=== PATIENT | female | born 1945 | race Caucasian/White ===

== ENCOUNTER 2017-07-02 20:09 | Inpatient (IN) | payer MEDICARE, BC ==
[~2017-07-02] VITALS: Ht 157.5 cm; Wt 90.9 kg
[2017-07-02 20:10] VITALS: BP 129/86; PULSE 100; RESP 16; TEMP 97.7; O2SAT 98
--- NOTE | 2017-07-03 00:56 | PD ---
HPI Chief Complaint: Psychiatric Symptoms Time Seen by Provider: 00:47 Travel History International Travel<30 days: No Contact w/Intl Traveler<30days: No Traveled to known affect area: No History of Present Illness HPI 71-year-old female presents to the emergency department by private transportation in the care of her son for voluntary evaluation for depression and suicidal ideation. Patient has long standing history of depression hypertension dyslipidemia chronic pain syndrome. Patient lives with her son and has been receiving her medications through her son for the past 5 years. Patient states today that more recently with past 3 days she has become more more depressed and feels that if she needed to she would overdose on pills but has not taken any kind a measure to act on her desire to "not live anymore". Son is at bedside and confirms patient's progressively worsening depression over the past 3 days; son confirms the patient is presented here voluntarily for mental health intervention. PFSH Past Medical History Narrative Medical Hypertension dyslipidemia diabetes depression chronic pain syndrome; no tobacco use: Nursing notes reviewed Social History Tobacco Use: No Allergies-Medications (Allergen,Severity, Reaction): Coded Allergies: No Known Allergies (Unverified , 07/03/17) Reported Meds & Prescriptions Reported Meds & Active Scripts Active Reported Meclizine (Meclizine HCl) 12.5 Mg Tab 12.5 Mg PO TID PRN Cymbalta DR (Duloxetine HCl) 60 Mg Capdr 60 Mg PO DAILY Aspirin 81 Mg Chew 81 Mg CHEW DAILY Benicar (Olmesartan) 20 Mg Tab 20 Mg PO DAILY Glipizide 10 Mg Tab 20 Mg PO BIDAC Take 30 minutes before a meal Copaxone Inj (Glatiramer Inj) 40 Mg/Ml Syr 40 Mg SQ 3XWEEK Use 3 times/week at least 48 hrs apart Ditropan (Oxybutynin Chloride) 5 Mg Tab 5 Mg PO Q12HR Crestor (Rosuvastatin Calcium) 20 Mg Tab 20 Mg PO DAILY Namenda (Memantine) 10 Mg Tab 10 Mg PO BID Metformin (Metformin HCl) 500 Mg Tab 500 Mg PO BIDPC Narrative Medication Blood pressure pill diabetes medication Cymbalta Review of Systems Except as stated in HPI: all other systems reviewed are Neg Physical Exam Narrative GENERAL: Well-developed well-nourished elderly female in no acute distress no respiratory distress; GCS 15 SKIN: Warm and dry. HEAD: Normocephalic. EYES: No scleral icterus. No injection or drainage. NECK: Supple, trachea midline. No JVD or lymphadenopathy. CARDIOVASCULAR: Regular rate and rhythm without murmurs, gallops, or rubs. RESPIRATORY: Breath sounds equal bilaterally. No accessory muscle use. GASTROINTESTINAL: Abdomen soft, non-tender, nondistended. MUSCULOSKELETAL: No cyanosis, or edema. BACK: Nontender without obvious deformity. No CVA tenderness. Data Data Last Documented VS Vital Signs Date Time Temp Pulse Resp B/P (MAP) Pulse Ox O2 Delivery O2 Flow Rate FiO2 07/03/17 15:49 98.2 102 18 144/78 (100) 97 Room Air Orders Orders Complete Blood Count With Diff (07/03/17 00:48) Comprehensive Metabolic Panel (07/03/17 00:48) Thyroid Stimulating Hormone (07/03/17 00:48) Urinalysis - C+S If Indicated (07/03/17 00:48) Electrocardiogram (07/03/17 00:48) Psych Screen (07/03/17 00:48) Drug Screen, Random Urine (07/03/17 00:48) Alcohol (Ethanol) (07/03/17 00:48) Salicylates (Aspirin) (07/03/17 00:48) Tylenol (Acetaminophen) (07/03/17 00:48) Admit Order (Ed Use Only) (07/03/17 ) Admit To Inpatient Psych (07/03/17 ) Code Status (07/03/17 16:06) Vital Signs (Adult) [id number] (07/03/17 16:06) Activity Oob Ad Zeynep (07/03/17 16:06) Level Of Observation (Psych) (07/03/17 16:06) Acetaminophen (Tylenol) (07/03/17 16:15) Magnesium Hydroxide Liq (Milk Of Magnesi (07/03/17 16:15) Al-Mag Hy-Si 40-40-4 Mg/Ml Liq (Mag-Al P (07/03/17 16:15) Basic Metabolic Panel (Bmp) (07/04/17 06:00) Lipid Profile (07/04/17 06:00) Hemoglobin (Hgb) A1c (07/04/17 06:00) Vitamin D, 25-Hydroxy (07/04/17 06:00) Vitamin B12 (07/04/17 06:00) Electrocardiogram (07/04/17 ) Aspirin Chew (Aspirin Chew) (07/04/17 09:00) Duloxetine Dr (Christophalta Dr) (07/04/17 09:00) Glipizide (Glucotrol) (07/04/17 07:00) Meclizine (Antivert) (07/03/17 16:15) Memantine (Namenda) (07/03/17 21:00) Metformin (Glucophage) (07/03/17 18:00) Oxybutynin (Ditropan) (07/03/17 21:00) Patient Own Medication (07/03/17 16:15) Losartan (Cozaar) (07/04/17 09:00) Atorvastatin (Lipitor) (07/04/17 09:00) Labs Laboratory Tests Test 07/03/17 02:30 07/03/17 05:33 07/03/17 08:00 Blood Urea Nitrogen 21 MG/DL Creatinine 1.50 MG/DL Random Glucose 67 MG/DL Total Protein 8.4 GM/DL Albumin 4.0 GM/DL Calcium Level 10.0 MG/DL Alkaline Phosphatase 61 U/L Aspartate Amino Transf (AST/SGOT) 22 U/L Alanine Aminotransferase (ALT/SGPT) 23 U/L Total Bilirubin 0.6 MG/DL Sodium Level 141 MEQ/L Potassium Level 3.5 MEQ/L Chloride Level 106 MEQ/L Carbon Dioxide Level 23.2 MEQ/L Anion Gap 12 MEQ/L Estimat Glomerular Filtration Rate 34 ML/MIN Thyroid Stimulating Hormone 3rd Gen 3.150 uIU/ML Salicylates Level LESS THAN 1.7 MG/DL Acetaminophen Level LESS THAN 2.0 MCG/ML Ethyl Alcohol Level LESS THAN 3 MG/DL White Blood Count 12.0 TH/MM3 Red Blood Count 4.68 MIL/MM3 Hemoglobin 13.3 GM/DL Hematocrit 38.5 % Mean Corpuscular Volume 82.3 FL Mean Corpuscular Hemoglobin 28.5 PG Mean Corpuscular Hemoglobin Concent 34.6 % Red Cell Distribution Width 14.6 % Platelet Count 215 TH/MM3 Mean Platelet Volume 7.3 FL Neutrophils (%) (Auto) 69.3 % Lymphocytes (%) (Auto) 22.3 % Monocytes (%) (Auto) 5.7 % Eosinophils (%) (Auto) 1.7 % Basophils (%) (Auto) 1.0 % Neutrophils # (Auto) 8.3 TH/MM3 Lymphocytes # (Auto) 2.7 TH/MM3 Monocytes # (Auto) 0.7 TH/MM3 Eosinophils # (Auto) 0.2 TH/MM3 Basophils # (Auto) 0.1 TH/MM3 CBC Comment DIFF FINAL Differential Comment Urine Opiates Screen POS Urine Barbiturates Screen NEG Urine Amphetamines Screen NEG Urine Benzodiazepines Screen NEG Urine Cocaine Screen NEG Urine Cannabinoids Screen NEG MDM Medical Decision Making Medical Screen Exam Complete: Yes Emergency Medical Condition: Yes Medical Record Reviewed: Yes Differential Diagnosis Depression mood disorder suicidal ideation Narrative Course specimens collected and sent for resulting patient requires psych screen and admission for depression Diagnosis Primary Impression: Depression Additional Impression: Suicidal ideation Kandi Price MD Jul 03, 2017 00:56
[2017-07-03 03:14] LABS: ALKALINE PHOSPHATASE 61 U/L (45-117); ALT (GPT) 23 U/L (10-53); AST (GOT) 22 U/L (15-37); BICARBONATE 23.2 MEQ/L (21.0-32.0); BLOOD UREA NITROGEN 21 MG/DL (7-18); CHLORIDE 106 MEQ/L (98-107); GLOMERULAR FILTRATION RATE 34 ML/MIN (>89); GLUCOSE,RANDOM 67 MG/DL (74-106); SODIUM (NA) 141 MEQ/L (136-145); TOTAL BILIRUBIN ADULT 0.6 MG/DL (0.2-1.0); TOTAL PROTEIN 8.4 GM/DL (6.4-8.2)
[2017-07-03 03:35] LABS: ACETAMINOPHEN LESS THAN 2.0 MCG/ML (10.0-30.0)
[2017-07-03 05:43] LABS: AUTOMATED NEUTROPHIL # 8.3 TH/MM3 (1.8-7.7); BASOPHIL # 0.1 TH/MM3 (0-0.2); EOSINOPHIL # 0.2 TH/MM3 (0-0.4); EOSINOPHIL % 1.7 % (0.0-4.0); HEMATOCRIT 38.5 % (35.0-46.0); HEMOGLOBIN 13.3 GM/DL (11.6-15.3); LYMPH % 22.3 % (9.0-44.0); LYMPHOCYTE # 2.7 TH/MM3 (1.0-4.8); MEAN CELL VOLUME 82.3 FL (80.0-100.0); MEAN CORPUSCULAR HEMOGLOBIN 28.5 PG (27.0-34.0); MEAN CORPUSCULAR HGB CONC 34.6 % (32.0-36.0); MEAN PLATELET VOLUME 7.3 FL (7.0-11.0); MONO % 5.7 % (0.0-8.0); MONOCYTE # 0.7 TH/MM3 (0-0.9); NEUT % 69.3 % (16.0-70.0); PLATELET COUNT 215 TH/MM3 (150-450); RED BLOOD COUNT 4.68 MIL/MM3 (4.00-5.30); RED CELL DISTRIBUTION WIDTH 14.6 % (11.6-17.2)
[2017-07-03 08:30] VITALS: BP 152/72; PULSE 91; RESP 18; O2SAT 97
--- NOTE | 2017-07-03 14:44 | PD ---
History of Present Illness Chief Complaint: Psychiatric Symptoms Time Seen by Provider: 14:05 Travel History International Travel<30 Days: No Contact w/Intl Traveler<30days: No Known affected area: No Legal Status Legal Status: Voluntary History of Present Illness: History of Present Illness HPI 71-year-old female with history of depression who presents to the emergency department by private transportation accompanied by her son on a voluntary status for evaluation for depression and suicidal ideation. Patient reports that she has a history of depression dating back several years but that for the past month she's been feeling increased depressed with passive suicidal ideation. She states that she feels like she is at the end of her low-lying , that she does not want to try any more and that she is ready to . She denies active suicidal plan. She reports decreased appetite, impaired sleep, anhedonia, socially isolated, difficulty remembering information. Electronic medical record is reviewed. No previous contact with [facility] psychiatry. I contacted her son Vito after the patient gave verbal consent. He states that he is her POA. He reports that the patient has had a lifelong history of depression with multiple previous psychiatric hospitalizations. Over the past week the patient has been refusing to bathe, not eating, staying in bed all day , and making statements such as I just want to live anymore. Approximately a month ago her neurologist from [facility] started Namenda for her reported memory impairment. The patient has been taking Cymbalta 60 mg by mouth daily for at least 10 years. 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 Psychiatric History Psychiatric History Hx Psychiatric Treatment: History of depression dating back at least 30 years. Multiple hospitalizations. History of Inpatient Treatment: Yes Guns or firearms in home: No Social History Born in [place]. Moved to [facility] as a young adult. 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 She is . Has been living with her son for the last 8 years. Hx Alcohol Use: No Hx Tobacco Use: No Hx Substance Use: Yes Substance Use Type: Benzos (Valium,Xanax) Hx of Substance Use Treatment: No Family Psychiatric History Negative Review of Systems Constitutional: COMPLAINS OF: Change in appetite Musculoskeletal: COMPLAINS OF: Back pain Neurologic: COMPLAINS OF: Poor Balance Psychiatric: COMPLAINS OF: Depression, Suicidal Ideation Mental Status Examination Appearance: Appropriate (dressed and shirt and pants poor hygiene.) Consciousness: Alert Orientation: x4 Motor Activity: Other (uses a walker) Speech: Unremarkable Language: Adequate Fund of Knowledge: Adequate Attention and Concentration: Inadequate (decreased concentration) Memory: Impaired (reports has been more forgetful.) Mood: Sad Affect: Labile, Other Thought Process & Associations: Intact, Logical Thought Content: Appropriate Hallucination Type: None Delusion Type: None Suicidal Ideation: Yes Suicidal Plan: No Suicidal Intention: No Homicidal Ideation: No Homicidal Plan: No Homicidal Intention: No Insight: Fair Judgment: Poor MDM Medical Decision Making Medical Record Reviewed: Yes Assessment/Plan 71-year-old female with history of depression who presents to the ED on a voluntary basis for evaluation of increased symptoms of depression and every including decreased appetite , anhedonia, low level of energy, isolative, not bathing, and verbalizing passive wishes. The patient's son who is her POA is concerned over her increase in verbalizations of wanting to . The patient meets criteria for inpatient psychiatric hospitalization for further evaluation, safety, and stabilization. Results of her UA are pending at this time. Orders Orders Complete Blood Count With Diff (07/03/17 00:48) Comprehensive Metabolic Panel (07/03/17 00:48) Thyroid Stimulating Hormone (07/03/17 00:48) Urinalysis - C+S If Indicated (07/03/17 00:48) Electrocardiogram (07/03/17 00:48) Psych Screen (07/03/17 00:48) Drug Screen, Random Urine (07/03/17 00:48) Alcohol (Ethanol) (07/03/17 00:48) Salicylates (Aspirin) (07/03/17 00:48) Tylenol (Acetaminophen) (07/03/17 00:48) Results Vital Signs Date Time Temp Pulse Resp B/P (MAP) Pulse Ox O2 Delivery O2 Flow Rate FiO2 07/03/17 08:30 91 18 152/72 (98) 97 Room Air 07/02/17 20:10 97.7 100 16 129/86 (100) 98 Room Air Laboratory Tests Test 07/03/17 02:30 07/03/17 05:33 07/03/17 08:00 Blood Urea Nitrogen 21 Creatinine 1.50 Random Glucose 67 Total Protein 8.4 Albumin 4.0 Calcium Level 10.0 Alkaline Phosphatase 61 Aspartate Amino Transf (AST/SGOT) 22 Alanine Aminotransferase (ALT/SGPT) 23 Total Bilirubin 0.6 Sodium Level 141 Potassium Level 3.5 Chloride Level 106 Carbon Dioxide Level 23.2 Anion Gap 12 Estimat Glomerular Filtration Rate 34 Thyroid Stimulating Hormone 3rd Gen 3.150 Salicylates Level LESS THAN 1.7 Acetaminophen Level LESS THAN 2.0 Ethyl Alcohol Level LESS THAN 3 White Blood Count 12.0 Red Blood Count 4.68 Hemoglobin 13.3 Hematocrit 38.5 Mean Corpuscular Volume 82.3 Mean Corpuscular Hemoglobin 28.5 Mean Corpuscular Hemoglobin Concent 34.6 Red Cell Distribution Width 14.6 Platelet Count 215 Mean Platelet Volume 7.3 Neutrophils (%) (Auto) 69.3 Lymphocytes (%) (Auto) 22.3 Monocytes (%) (Auto) 5.7 Eosinophils (%) (Auto) 1.7 Basophils (%) (Auto) 1.0 Neutrophils # (Auto) 8.3 Lymphocytes # (Auto) 2.7 Monocytes # (Auto) 0.7 Eosinophils # (Auto) 0.2 Basophils # (Auto) 0.1 CBC Comment DIFF FINAL Differential Comment Urine Opiates Screen POS Urine Barbiturates Screen NEG Urine Amphetamines Screen NEG Urine Benzodiazepines Screen NEG Urine Cocaine Screen NEG Urine Cannabinoids Screen NEG Diagnosis Primary Impression: Depression Additional Impression: Suicidal ideation Admitting Information Admitting Physician Requests: Admit Problem Qualifiers Primary Impression: Depression Qualified Codes: F33.1 - Major depressive disorder, recurrent, moderate Raya Sharma [facility] Jul 03, 2017 14:44
[2017-07-03 15:49] VITALS: BP 144/78; PULSE 102; RESP 18; TEMP 98.2; O2SAT 97
[2017-07-03] MEDS ORDERED: ASPI-516 CHEW (15:59)
[2017-07-03] MEDS ORDERED: NAME10TA PO (15:59)
[2017-07-03] MEDS ORDERED: MECL12.574 PO (15:59)
[2017-07-03] MEDS ORDERED: OXYB5TAB8 PO (15:59)
[2017-07-03] MEDS ORDERED: GLAT1INJ SQ (15:59)
[2017-07-03] MEDS ORDERED: ROSU20 PO (15:59)
[2017-07-03] MEDS ORDERED: METF500T PO (15:59)
[2017-07-03] MEDS ORDERED: GLIP10TA6 PO (15:59)
[2017-07-03] MEDS ORDERED: OLME1TAB PO (15:59)
[2017-07-03] MEDS ORDERED: CYMB60CA PO (15:59)
[2017-07-03] MEDS ORDERED: [UNRECOGNIZED DRUG - OTHER] SQ SCH (16:15)
[2017-07-03] MEDS ORDERED: MECLIZINE HCL 25 MG TAB PO PRN (16:15)
[2017-07-03] MEDS ORDERED: GLATIRAMER 40 MG SQ SCH (16:15)
[2017-07-03] MEDS ORDERED: ACETAMINOPHEN 325 MG TAB PO PRN (16:15)
[2017-07-03] MEDS ORDERED: MAGNESIUM HYDROXIDE SUSP 30 ML CUP PO PRN (16:15)
[2017-07-03] MEDS: metFORMIN HCL 500 MG TAB PO SCH (18:00)
[2017-07-03 18:12] VITALS: BP 169/81; PULSE 97; RESP 18; TEMP 98.1; O2SAT 97
[2017-07-03] MEDS: MEMANTINE HCL 10 MG TAB PO SCH (20:53)
[2017-07-03] MEDS: OXYBUTYNIN CHLORIDE 5 MG TAB PO SCH (20:53)
[2017-07-03] MEDS: ALUMINUM/MAGNESIUM/SIMETH 30 ML CUP PO PRN (21:26)
--- NOTE | 2017-07-04 00:26 | EKG ---
Date Performed: 07/03/2017 Time Performed: 07:52:01 PTAGE: 71 years EKG: Sinus rhythm MARKED LEFT AXIS DEVIATION ABNORMAL ECG NO PREVIOUS TRACING DOCTOR: Víctor Castaneda Interpretating Date/Time 07/04/2017 00:25:25
[2017-07-04] MEDS: glipiZIDE 10 MG TAB PO SCH ×2 (09:48→16:00)
[2017-07-04] MEDS: OXYBUTYNIN CHLORIDE 5 MG TAB PO SCH ×2 (09:48→20:42)
[2017-07-04] MEDS: DULoxetine HCl DR 60 MG CAP PO SCH (09:49)
[2017-07-04] MEDS: metFORMIN HCL 500 MG TAB PO SCH ×2 (09:49→17:32)
[2017-07-04] MEDS: MEMANTINE HCL 10 MG TAB PO SCH ×3 (09:49→21:06)
[2017-07-04] MEDS: ASPIRIN 81 MG CHEW TAB CHEW SCH (09:49)
[2017-07-04] MEDS: LOSARTAN 50 MG TAB PO SCH (09:49)
[2017-07-04] MEDS: ATORVASTATIN 40 MG TAB PO SCH (09:50)
--- NOTE | 2017-07-04 09:53 | EKG ---
Date Performed: 07/03/2017 Time Performed: 21:37:40 PTAGE: 71 years EKG: Sinus rhythm MARKED LEFT AXIS DEVIATION PATTERN CONSISTENT WITH PULMONARY DISEASE ABNORMAL ECG Since the prior tr acing, there has been no significant change PREVIOUS TRACING : 07/03/2017 07.52 DOCTOR: Huey Back Interpretating Date/Time 07/04/2017 09:48:25
[2017-07-04] MEDS ORDERED: PNEUMOCOCCAL POLYVALENT INJ 25 MCG/0.5 ML SYR IM ONE (10:00)
[2017-07-04] MEDS ORDERED: INFLUENZA VIRUS VACCINE (QUADRIVALENT) 0.5 ML SYR IM ONE (10:00)
--- NOTE | 2017-07-04 11:25 | HHI.HP ---
Provisional Diagnosis Admission Date Jul 03, 2017 at 16:10 [place] I. 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 Express and informed consent means consent voluntarily given in writing, by a competent person, after sufficient explanation and disclosure of the subject matter involved to enable the person to make a knowing and willful decision without any element of force, fraud, deceit, duress, or other form of constraint or coercion. This person is 18 years of age or older, is not now known to be incompetent to consent to treatment with a guardian advocate, and does not have a health care surrogate or proxy currently making medical treatment decisions. I have found this person to be one of the following: ]xxx Competent to provide express and informed consent, as defined above, for voluntary admission to this facility and is competent to provide express and informed consent for treatment. He/she has the consistent capacity to make well reasoned, willful, and knowing decisions concerning his or her medical or mental health treatment. The person fully and consistently understands the purpose of the admission for examination/placement and is fully capable of personally exercising all rights assured under [place] Incompetent to provide express and informed consent to voluntary admission, and this is incompetent to provide express and informed consent to treatment. The person must be transferred to involuntary status and a petition for a guardian advocate filed with the Circuit Court. [] Refusing to provide express and informed consent to voluntary admission but is competent to provide express and informed consent for treatment. The person must be discharged or transferred to involuntary status. Form shall be completed within 24 hours of a person's arrival at the receiving facility and filed in the clinical record of each person: 1. Admitted on a voluntary basis 2. Permitted to provide express and informed consent to his/her own treatment 3. Allowed to transfer from involuntary to voluntary status 4. Prior to permitting a person to consent to his or her own treatment after having been previously found incompetent to consent to treatment. History of Present Illness Capacity: Has Capacity Psych Chief Complaint: depression with suicidal ideation HPI Patient is a 71 year old white female comes here voluntarily being brought in by her son with complaints of increased depression with suicidal ideation, and ideation. Patient seen screened in the ED urine toxicology positive for opiates negative for alcohol. Upon review of EMR this is patient's first visit with us. At the present time patient sitting quietly in her room on 2500 nurse Alina present throughout session. Patient given a somewhat vague amorphous history. States she's been depressed most of her life. Though she denies prior psychiatric hospitalization. She is vague and somewhat confusing about past psychiatric contact. She states she has been on Cymbalta for many years though she is not certain of the reason why. She does not see a psychiatrist at the present time. She lives by herself. There are no pets in the house. She basically is homebound able to do her toileting and some cooking but her son does her shopping. She spends the day in bed or watching TV. He states his depression is gotten worse these initial and mid insomnia, a.m. anergy, decreased appetite, there is a significant anhedonia, patient denies any self- medicating, denies any alcohol or drug use with this. Though she states she has had adult beverages in the past. Patient fairly well oriented, does know she is in a hospital [facility]. Need encouragement to identify [facility] though she thought it was in another state. She just somewhat that was 1999 and June She denies any voices or visions with this. Patient denied any physical or sexual abuse as a child. Is vague about any mental health history in the family. At this time patient meets criteria for further inpatient psychiatric hospitalization and observation. Patient does state she would rather be right now that she is no reason for living. Though she is somewhat vague about taking the suicide pill. We did have a living will with her therapist states no resuscitation. We'll have hospitalist consult was will have neurology consult was related to her MS. We did discuss medications we'll add Remeron 15 mg at at bedtime. Consideration of a weaning or tapering of the Cymbalta. Will attempt to reach patient's son to arrange for family meeting to discuss medication treatment possible placement issues Review of Systems Constitutional: DENIES: Diaphoretic episodes, Fatigue, Fever, Weight gain, Weight loss, Chills, Dizziness, Change in appetite, Night Sweats Endocrine: DENIES: Abnorml menstrual pattern, Heat/cold intolerance, Polydipsia , Polyuria, Polyphagia Eyes: DENIES: Blurred vision, Diplopia, Eye inflammation, Eye pain, Vision loss , Photosensitivity, Double Vision Ears, nose, mouth, throat: DENIES: Tinnitus, Hearing loss, Vertigo, Nasal discharge, Oral lesions, Throat pain, Hoarseness, Ear Pain, Running Nose, Epistaxis, Sinus Pain, Toothache, Odynophagia Respiratory: DENIES: Apneas, Cough, Snoring, Wheezing, Hemoptysis, Sputum production, Shortness of breath Gastrointestinal: DENIES: Abdominal pain, Black stools, Bloody stools, Constipation, Diarrhea, Nausea, Vomiting, Difficulty Swallowing, Anorexia Genitourinary: DENIES: Abnormal vaginal bleeding, Dysmenorrhea, Dyspareunia, Sexual dysfunction, Urinary frequency, Urinary incontinence, Urgency, Hematuria , Dysuria, Nocturia, Vaginal discharge Musculoskeletal: DENIES: Joint pain, Muscle aches, Stiffness, Joint Swelling, Back pain, Neck pain Integumentary: DENIES: Abnormal pigmentation, Pruritus, Rash, Nail changes, Breast masses, Breast skin changes, Nipple discharge Hematologic/lymphatic: DENIES: Bruising, Lymphadenopathy Immunologic/allergic: DENIES: Eczema, Urticaria Neurologic: COMPLAINS OF: Abnormal gait Psychiatric: COMPLAINS OF: Depression, Suicidal Ideation (patient with wish) Past Psych History Psychological trauma history Patient denies Violence risk - others (6 mos) Low Violence risk - self (6 mos) Moderate to high Substance Abuse History Drugs/Alcohol past 12 months Patient vague about social drinking Past Family Social History Coded Allergies: No Known Allergies (Unverified , 07/03/17) Reported Medications Metformin (Metformin) 500 Mg Tab, 500 MG PO BIDPC for Blood Sugar Management, # 60 TAB 0 Refills 07/03/17 Meclizine (Meclizine) 12.5 Mg Tab, 12.5 MG PO TID Y for VERTIGO, TAB 0 Refills 07/03/[address] (Cymbalta DR) 60 Mg Capdr, 60 MG PO DAILY, #30 CAP 0 Refills 07/03/17 Aspirin (Aspirin) 81 Mg Chew, 81 MG CHEW DAILY, TAB 0 Refills 07/03/17 Olmesartan (Benicar) 20 Mg Tab, 20 MG PO DAILY for Blood Pressure Management, # 30 TAB 0 Refills 07/03/17 Glipizide (Glipizide) 10 Mg Tab, 20 MG PO BIDAC for Blood Sugar Management, #60 TAB 0 Refills Take 30 minutes before a meal 07/03/17 Glatiramer Inj (Copaxone Inj) 40 Mg/Ml Syr, 40 MG SQ 3XWEEK for Multiple Sclerosis, SYRINGE 0 Refills Use 3 times/week at least 48 hrs apart 07/03/17 Oxybutynin (Ditropan) 5 Mg Tab, 5 MG PO Q12HR for Urinary Symptom Managemen, # 60 TAB 0 Refills 07/03/17 Rosuvastatin (Crestor) 20 Mg Tab, 20 MG PO DAILY for Cholesterol Management, # 30 TAB 0 Refills 07/03/17 Memantine (Namenda) 10 Mg Tab, 10 MG PO BID for Alzheimer Disease, #30 TAB 0 Refills 07/03/17 Current Medications Medications (Trade) Dose Ordered Sig/Ghassan Route Start Time Stop Time Status Last Admin (Tylenol) 650 mg Q4H PRN PO 07/03/17 16:15 (Milk Of Magnesia Liq) 30 ml DAILY PRN PO 07/03/17 16:15 (Mag-Al Plus Susp Liq) 30 ml Q6H PRN PO 07/03/17 16:15 07/03/17 21:26 (Aspirin Chew) 81 mg DAILY CHEW 07/04/17 09:00 07/04/17 09:49 (Cymbalta Dr) 60 mg DAILY PO 07/04/17 09:00 07/04/17 09:49 (Glucotrol) 20 mg BIDAC PO 07/04/17 07:00 07/04/17 09:48 (Antivert) 12.5 mg TID PRN PO 07/03/17 16:15 (Namenda) 10 mg BID PO 07/03/17 21:00 07/04/17 09:49 (Glucophage) 500 mg BIDPC PO 07/03/17 18:00 07/04/17 09:49 (Ditropan) 5 mg Q12HR PO 07/03/17 21:00 07/04/17 09:48 Patient Own Medication PT OWN MED: (Glatira... 3XWEEK SQ 07/03/17 16:15 Future Hold (Cozaar) 50 mg DAILY PO 07/04/17 09:00 07/04/17 09:49 (Lipitor) 40 mg DAILY PO 07/04/17 09:00 07/04/17 09:50 (Remeron) 15 mg HS PO 07/04/17 21:00 UNV Family Psych History Patient denies Social History lives by herself with no pets has supportive son that lives local Patient's Strengths (min. 2) Patient verbal irritable access healthcare Physical Exam Patient medically cleared ED exam reviewed and agreed with patient sitting quietly in her room, she is in no acute distress, no respiratory distress, no complaints abdominal pain. Patient does use walker there is no unsteadiness in her gait Vital Signs Vital Signs Date Time Temp Pulse Resp B/P (MAP) Pulse Ox O2 Delivery O2 Flow Rate FiO2 07/03/17 18:12 98.1 97 18 169/81 (110) 97 07/03/17 15:49 Room Air I/O 07/04/17 07/04/17 07/05/17 08:00 16:00 00:00 Intake Total 240 ml Balance 240 ml Mental Status Examination Appearance: Appropriate (dressed and shirt and pants poor hygiene.) Consciousness: Alert Orientation: x4 Motor Activity: Other (uses a walker) Speech: Unremarkable Language: Adequate Fund of Knowledge: Adequate Attention and Concentration: Inadequate (decreased concentration) Memory: Impaired (reports has been more forgetful.) Mood: Sad Affect: Labile, Other Thought Process & Associations: Intact, Logical Thought Content: Appropriate Hallucination Type: None Delusion Type: None Suicidal Ideation: Yes Suicidal Plan: No Suicidal Intention: No Homicidal Ideation: No Homicidal Plan: No Homicidal Intention: No Insight: Fair Judgment: Poor Assessment & Plan Problem List: (1) Moderate early onset dysthymic disorder, in partial remission, with mixed features, with intermittent major depressive episodes, with current episode ICD Codes: F34.1 - Dysthymic disorder Assessment & Plan Estimated LOS: 5-7 days this time patient does meet criteria for involuntary psychiatric hospitalization. We did discuss medications we'll add Remeron 15 mg at at bedtime. We will also have the hospitalist consult will us along with neurology. We'll attempt to have a family meeting with the patient's son the next few days. Discharge Planning Hopefully to return to her own home Request HC Surrog/Guard Advoc?: No Joe Linton MD Jul 04, 2017 11:25
[2017-07-04 12:34] LABS: BICARBONATE 25.9 MEQ/L (21.0-32.0); BLOOD UREA NITROGEN 18 MG/DL (7-18); CALCIUM 9.8 MG/DL (8.5-10.1); CHLORIDE 106 MEQ/L (98-107); CREATININE 1.26 MG/DL (0.50-1.00); GLOMERULAR FILTRATION RATE 42 ML/MIN (>89); GLUCOSE,RANDOM 133 MG/DL (74-106); SODIUM (NA) 140 MEQ/L (136-145)
[2017-07-04 12:36] LABS: CHOLESTEROL 124 MG/DL (120-200)
[2017-07-04] MEDS ORDERED: cloNIDine HCL 0.1 MG TAB PO PRN (13:00)
[2017-07-04 13:03] LABS: CHOLESTEROL/ HDL RATIO 3.19 RATIO; HDL CHOLESTEROL 38.8 MG/DL (40.0-60.0); LDL CHOLESTEROL 31 MG/DL (0-99); TRIGLYCERIDES 269 MG/DL (42-150)
[2017-07-04] MEDS: ALUMINUM/MAGNESIUM/SIMETH 30 ML CUP PO PRN (16:36)
--- NOTE | 2017-07-04 17:27 | PD.CONS ---
HPI Service [facility] Consult Requested By Primary Care Physician Elvin Ware DO Diagnoses: History of Present Illness Mrs. Kim is a 71-year-old female. She is admitted secondary to depression and suicidal ideations. Consult placed secondary to hypertension, diabetes mellitus type 2, and multiple sclerosis. Patient denies any recent multiple sclerosis exacerbations and has not been hospitalized in regards to this at any point. She also has hyperlipidemia and dementia at baseline. Some history is not obtainable secondary to her dementia. She can recall that she's had several surgeries including tonsillectomy and back surgery but cannot recall any others. She has no acute complaints. Blood pressures are slightly elevated. No other acute concerns. Review of Systems Constitutional: DENIES: Fatigue, Fever, Night Sweats Eyes: DENIES: Blurred vision, Diplopia, Eye inflammation, Eye pain Ears, nose, mouth, throat: DENIES: Tinnitus, Hearing loss, Vertigo, Nasal discharge Respiratory: DENIES: Cough, Wheezing, Shortness of breath Cardiovascular: DENIES: Chest pain, Palpitations, Syncope Gastrointestinal: DENIES: Abdominal pain, Black stools, Bloody stools Musculoskeletal: DENIES: Joint pain, Muscle aches, Stiffness Integumentary: DENIES: Abnormal pigmentation, Pruritus, Rash, Nail changes Hematologic/lymphatic: DENIES: Bruising, Lymphadenopathy Immunologic/allergic: DENIES: Eczema, Urticaria Neurologic: DENIES: Abnormal gait, Headache, Paresthesias Psychiatric: COMPLAINS OF: Anxiety, Depression, DENIES: Confusion, Hallucinations Past Family Social History Allergies: Coded Allergies: No Known Allergies (Unverified , 07/03/17) Past Medical History Hypertension Diabetes mellitus type 2 Multiple sclerosis Hyperlipidemia Dementia Past Surgical History Tonsillectomy Back surgery Reported Medications Reported Meds & Active Scripts Active Reported Metformin (Metformin HCl) 500 Mg Tab 500 Mg PO BIDPC Meclizine (Meclizine HCl) 12.5 Mg Tab 12.5 Mg PO TID PRN Cymbalta DR (Duloxetine HCl) 60 Mg Capdr 60 Mg PO DAILY Aspirin 81 Mg Chew 81 Mg CHEW DAILY Benicar (Olmesartan) 20 Mg Tab 20 Mg PO DAILY Glipizide 10 Mg Tab 20 Mg PO BIDAC Take 30 minutes before a meal Copaxone Inj (Glatiramer Inj) 40 Mg/Ml Syr 40 Mg SQ 3XWEEK Use 3 times/week at least 48 hrs apart Ditropan (Oxybutynin Chloride) 5 Mg Tab 5 Mg PO Q12HR Crestor (Rosuvastatin Calcium) 20 Mg Tab 20 Mg PO DAILY Namenda (Memantine) 10 Mg Tab 10 Mg PO BID Active Ordered Medications Administered Medications Medications (Trade) Dose Ordered Sig/Ghassan Route PRN Reason Start Time Stop Time Status Last Admin Dose Admin Al Hydrox/Mg Hydrox/Simethicone (Mag-Al Plus Susp Liq) 30 ml Q6H PRN PO DYSPEPSIA 07/03/17 16:15 07/04/17 16:36 Aspirin (Aspirin Chew) 81 mg DAILY CHEW 07/04/17 09:00 07/04/17 09:49 Duloxetine HCl (Cymbalta Dr) 60 mg DAILY PO 07/04/17 09:00 07/04/17 09:49 Glipizide (Glucotrol) 20 mg BIDAC PO 07/04/17 07:00 07/04/17 16:00 Memantine (Namenda) 10 mg BID PO 07/03/17 21:00 07/04/17 09:49 Metformin HCl (Glucophage) 500 mg BIDPC PO 07/03/17 18:00 07/04/17 09:49 Oxybutynin Chloride (Ditropan) 5 mg Q12HR PO 07/03/17 21:00 07/04/17 09:48 Losartan Potassium (Cozaar) 50 mg DAILY PO 07/04/17 09:00 07/04/17 09:49 Atorvastatin Calcium (Lipitor) 40 mg DAILY PO 07/04/17 09:00 07/04/17 09:50 Family History Patient recalls no positive family history in her mother and father Social History Patient denies alcohol abuse Patient denies smoking Patient denies illicit drug abuse Physical Exam Vital Signs Vital Signs Date Time Temp Pulse Resp B/P (MAP) Pulse Ox O2 Delivery O2 Flow Rate FiO2 07/03/17 18:12 98.1 97 18 169/81 (110) 97 07/03/17 17:33 Physical Exam GENERAL: NAD, A&Ox2 HEAD: Normocephalic. NECK: Supple, trachea midline. No lymphadenopathy. EYES: No scleral icterus. No injection or drainage. CARDIOVASCULAR: Regular rate and rhythm without murmurs, gallops, or rubs. RESPIRATORY: Breath sounds equal bilaterally. No accessory muscle use. GASTROINTESTINAL: Abdomen soft, non-tender, nondistended. MUSCULOSKELETAL: No cyanosis, or edema. SKIN: Warm and dry. NEURO: No focal neurological deficitis. Laboratory Laboratory Tests Test 07/04/17 10:40 Blood Urea Nitrogen 18 Creatinine 1.26 Random Glucose 133 Calcium Level 9.8 Sodium Level 140 Potassium Level 3.4 Chloride Level 106 Carbon Dioxide Level 25.9 Anion Gap 8 Estimat Glomerular Filtration Rate 42 Triglycerides Level 269 Cholesterol Level 124 LDL Cholesterol 31 HDL Cholesterol 38.8 Cholesterol/HDL Ratio 3.19 Vitamin B12 Level 889 25-Hydroxy Vitamin D Total 29.3 Result Diagram: 07/03/17 0533 07/04/17 1040 Assessment and Plan Problem List: (1) Moderate early onset dysthymic disorder, in partial remission, with mixed features, with intermittent major depressive episodes, with current episode ICD Code: F34.1 - Dysthymic disorder (2) Suicidal ideation ICD Code: R45.851 - Suicidal ideations Status: Acute (3) Depression ICD Code: F32.9 - Major depressive disorder, single episode, unspecified Status: Acute Assessment and Plan 71-year-old female admitted secondary to depression with suicidal ideation Depression Suicidal ideation Continue management per psychiatry Diabetes mellitus type 2 Follow blood sugars Continue metformin Continue glipizide Diabetic diet Check hemoglobin A1c Hypertension Continue baseline treatment Follow blood pressures Adjust treatments as needed Continue baseline losartan Amlodipine started Multiple sclerosis No exacerbation Follow clinically Insomnia Benadryl as needed at night DVT prophylaxis Ambulation encouraged Problem Qualifiers (1) Depression: Qualified Codes: F33.1 - Major depressive disorder, recurrent, moderate Patrick Patterson MD Jul 04, 2017 17:27
[2017-07-04 17:37] LABS: HEMOGLOBIN A1C 6.6 % (4.3-6.0)
[2017-07-04 18:06] VITALS: BP 110/55; PULSE 90; RESP 18; TEMP 97.6; O2SAT 94
[2017-07-04] MEDS: MIRTAZAPINE 15 MG TAB PO SCH ×2 (20:42→21:06)
[2017-07-04] MEDS: diphenhydrAMINE HCL 25 MG CAP PO PRN (21:05)
[2017-07-05 05:30] VITALS: BP 111/58; PULSE 79; RESP 16; TEMP 97.9; O2SAT 96
[2017-07-05 06:41] VITALS: BP 111/58; PULSE 79; RESP 16; TEMP 97.9; O2SAT 96
[2017-07-05] MEDS: glipiZIDE 10 MG TAB PO SCH ×2 (06:47→16:00)
[2017-07-05] MEDS ORDERED: POTASSIUM CHLORIDE 20 MEQ PWD PACKET PO ONE (09:00)
[2017-07-05] MEDS: LOSARTAN 50 MG TAB PO SCH (09:56)
[2017-07-05] MEDS: MEMANTINE HCL 10 MG TAB PO SCH ×2 (09:56→20:39)
[2017-07-05] MEDS: amLODIPine BESYLATE 5 MG TAB PO SCH (09:56)
[2017-07-05] MEDS: OXYBUTYNIN CHLORIDE 5 MG TAB PO SCH ×2 (09:56→20:39)
[2017-07-05] MEDS: ATORVASTATIN 40 MG TAB PO SCH (09:56)
[2017-07-05] MEDS: DULoxetine HCl DR 60 MG CAP PO SCH (09:56)
[2017-07-05] MEDS: ASPIRIN 81 MG CHEW TAB CHEW SCH (09:56)
[2017-07-05] MEDS: metFORMIN HCL 500 MG TAB PO SCH ×2 (09:57→18:00)
[2017-07-05] MEDS ORDERED: AMLO5 PO (12:14)
--- NOTE | 2017-07-05 16:00 | HHI.PYPN ---
Subjective Chief Complaint: depression with suicidal ideation Remarks Patient seen in her room nurse Alina, chart review, patient claimed medication. Patient sitting quietly in the room, cooperative now denying suicidality of voices or visions. This was some discrepancy with placement with her sensation may be able to go stay at her brother's house as opposed to being alone in her apartment. For now continue treatment. Review of Systems Except as stated in HPI: all other systems reviewed are Neg Mental Status Examination Appearance: Appropriate (dressed and shirt and pants poor hygiene.) Consciousness: Alert Orientation: x4 Motor Activity: Other (uses a walker) Speech: Unremarkable Language: Adequate Fund of Knowledge: Adequate Attention and Concentration: Inadequate (decreased concentration) Memory: Impaired (reports has been more forgetful.) Mood: Sad Affect: Labile, Other Thought Process & Associations: Intact, Logical Thought Content: Appropriate Hallucination Type: None Delusion Type: None Suicidal Ideation: Yes Suicidal Plan: No Suicidal Intention: No Homicidal Ideation: No Homicidal Plan: No Homicidal Intention: No Insight: Fair Judgment: Poor Results Vitals/IOs Vital Signs Date Time Temp Pulse Resp B/P (MAP) Pulse Ox O2 Delivery O2 Flow Rate FiO2 07/05/17 06:41 97.9 79 16 111/58 (75) 96 07/03/17 15:49 Room Air Intake and Output 07/05/17 07/05/17 07/06/17 08:00 16:00 00:00 Intake Total 0 ml 840 ml Balance 0 ml 840 ml Assessment & Plan Problem List: (1) Moderate early onset dysthymic disorder, in partial remission, with mixed features, with intermittent major depressive episodes, with current episode ICD Codes: F34.1 - Dysthymic disorder Assessment & Plan Estimated LOS: days patient continues depressed, though now denying suicidality a question the veracity of that statement. For now continue treatment Justification for Cont. Inpt. At this time patient decompensated and placed in a lower level of care Discharge Planning This needs to be determined whether this with her brother or neural place Request HC Surrog/Guard Advoc?: No Joe Linton MD Jul 05, 2017 16:00
[2017-07-05 18:26] VITALS: BP 111/56; PULSE 93; RESP 17; TEMP 97.5; O2SAT 95
[2017-07-05 18:28] VITALS: BP 111/56; PULSE 93; RESP 17; TEMP 97.5; O2SAT 95
[2017-07-05] MEDS: MIRTAZAPINE 15 MG TAB PO SCH (20:39)
[2017-07-05] MEDS: diphenhydrAMINE HCL 25 MG CAP PO PRN (23:37)
[2017-07-06 05:58] VITALS: BP 131/62; PULSE 73; RESP 18; TEMP 97.7; O2SAT 96
--- NOTE | 2017-07-06 06:55 | MB ---
cc: COURT BEARD M.D. DATE OF CONSULTATION 07/05/2017 REASON FOR CONSULTATION Multiple sclerosis HISTORY OF PRESENT ILLNESS Ms. Kim is a very pleasant 71-year-old female who states she has had multiple sclerosis for many years. The patient was admitted with increasing thoughts of depression and suicidal ideation, hence admission to the psychiatry service. She does relate that her MS causes her to be weak in general, but she feels this is stable. Denies any signs of exacerbation. MEDICATIONS Current medications are: 1. Amlodipine. 2. Mirtazapine. 3. Benadryl p.r.n. 4. Clonidine. 5. Aspirin. 6. Cymbalta. 7. Cozaar. 8. Lipitor. 9. Glucotrol. 10. Namenda. 11. Ditropan. 12. Glucophage. 13. Tylenol. NEUROLOGIC EXAMINATION Blood pressure 111/56, pulse 93, respiratory rate is 17, temperature 97 degrees. Higher cortical function, alert and oriented. Speech is fluent. Cranial nerves: She has absence of vision in the right eye. She has a disconjugate gaze. On motor exam, she has 4/5 strength of both upper and lower extremities. Reflexes are symmetric. IMPRESSION/PLAN Multiple sclerosis. Her MS appears to be stable at the present time, would recommend no further neurologic evaluation at this time. MD JOSEFINA Chinchilla/AJIT /9:41 PM /6:37 AM
[2017-07-06] MEDS: LOSARTAN 50 MG TAB PO SCH (09:24)
[2017-07-06] MEDS: metFORMIN HCL 500 MG TAB PO SCH ×2 (09:25→17:39)
[2017-07-06] MEDS: ASPIRIN 81 MG CHEW TAB CHEW SCH (09:27)
[2017-07-06] MEDS: amLODIPine BESYLATE 5 MG TAB PO SCH (09:27)
[2017-07-06] MEDS: ATORVASTATIN 40 MG TAB PO SCH (09:27)
[2017-07-06] MEDS: OXYBUTYNIN CHLORIDE 5 MG TAB PO SCH ×2 (09:27→21:06)
[2017-07-06] MEDS: glipiZIDE 10 MG TAB PO SCH ×2 (09:27→16:00)
[2017-07-06] MEDS: DULoxetine HCl DR 60 MG CAP PO SCH (09:27)
[2017-07-06] MEDS: MEMANTINE HCL 10 MG TAB PO SCH ×2 (09:28→21:06)
--- NOTE | 2017-07-06 12:29 | HHI.PYPN ---
Subjective Chief Complaint: depression with suicidal ideation Remarks Patient seen in her room with nurse Marilyn, chart reviewed, patient compliant medication. Patient continues depressed with suicidal ideation. Though she states she could never kill herself because she is afraid to. She also complains still of insomnia poor sleep. She states she has not talked to her brother. She does not want to even consider an DIANDRA or retirement. 3 want to return to home. For now will increase Remeron to 30 mg at bedtime, will discontinue the at bedtime Benadryl. Will add trazodone 25 mg at at bedtime Review of Systems Except as stated in HPI: all other systems reviewed are Neg Mental Status Examination Appearance: Appropriate (dressed and shirt and pants poor hygiene.) Consciousness: Alert Orientation: x4 Motor Activity: Other (uses a walker) Speech: Unremarkable Language: Adequate Fund of Knowledge: Adequate Attention and Concentration: Inadequate (decreased concentration) Memory: Impaired (reports has been more forgetful.) Mood: Sad Affect: Labile, Other Thought Process & Associations: Intact, Logical Thought Content: Appropriate Hallucination Type: None Delusion Type: None Suicidal Ideation: Yes Suicidal Plan: No Suicidal Intention: No Homicidal Ideation: No Homicidal Plan: No Homicidal Intention: No Insight: Fair Judgment: Poor Results Vitals/IOs Vital Signs Date Time Temp Pulse Resp B/P (MAP) Pulse Ox O2 Delivery O2 Flow Rate FiO2 07/06/17 05:58 97.7 73 18 131/62 (85) 96 07/03/17 15:49 Room Air Intake and Output 07/06/17 07/06/17 07/07/17 08:00 16:00 00:00 Intake Total 0 ml 240 ml Balance 0 ml 240 ml Assessment & Plan Problem List: (1) Moderate early onset dysthymic disorder, in partial remission, with mixed features, with intermittent major depressive episodes, with current episode ICD Codes: F34.1 - Dysthymic disorder Assessment & Plan Estimated LOS: days patient continues depressed with vague suicidal ideation and insomnia please see medication adjustments above Justification for Cont. Inpt. At this time patient decompensated placed on the lower level of care Discharge Planning Patient would like to return to her own apartment Request HC Surrog/Guard Advoc?: No Joe Linton MD Jul 06, 2017 12:29
[2017-07-06] MEDS ORDERED: PILL SPLITTER OTHER PRN (12:45)
[2017-07-06 18:00] VITALS: BP 133/67; PULSE 92; RESP 19; TEMP 97.9; O2SAT 97
[2017-07-06] MEDS ORDERED: traZODone HCL 50 MG TAB PO SCH (21:00)
[2017-07-06] MEDS: MIRTAZAPINE 15 MG TAB PO SCH (21:06)
[2017-07-07 06:28] VITALS: BP 121/55; PULSE 81; RESP 16; TEMP 98.7; O2SAT 94
[2017-07-07] MEDS: glipiZIDE 10 MG TAB PO SCH ×2 (07:00→16:00)
[2017-07-07] MEDS: ASPIRIN 81 MG CHEW TAB CHEW SCH (09:00)
[2017-07-07] MEDS: MEMANTINE HCL 10 MG TAB PO SCH ×2 (09:00→20:22)
[2017-07-07] MEDS: metFORMIN HCL 500 MG TAB PO SCH ×2 (09:00→17:01)
[2017-07-07] MEDS: amLODIPine BESYLATE 5 MG TAB PO SCH (09:00)
[2017-07-07] MEDS: OXYBUTYNIN CHLORIDE 5 MG TAB PO SCH ×2 (09:00→20:22)
[2017-07-07] MEDS: DULoxetine HCl DR 60 MG CAP PO SCH (09:00)
[2017-07-07] MEDS: ATORVASTATIN 40 MG TAB PO SCH (09:00)
[2017-07-07] MEDS: LOSARTAN 50 MG TAB PO SCH (09:00)
[2017-07-07 17:00] VITALS: BP 132/63; PULSE 94; RESP 16; TEMP 98.7; O2SAT 98
--- NOTE | 2017-07-07 18:09 | HHI.PYPN ---
Subjective Chief Complaint: depression with suicidal ideation Remarks Patient was seen and case discussed with nursing. Patient is pleasant and cooperative with exam. She told nursing this morning she slept well but now is claiming she did not sleep well. Scrubs her mood today is "always depressed." Though affect is not congruent that she seems quite neutral. She denies suicidal homicidal ideation intent or plan. Behaving well on the unit Mental Status Examination Appearance: Appropriate (dressed and shirt and pants poor hygiene.) Consciousness: Alert Orientation: x4 Motor Activity: Other (uses a walker) Speech: Unremarkable Language: Adequate Fund of Knowledge: Adequate Attention and Concentration: Inadequate (decreased concentration) Memory: Impaired (reports has been more forgetful.) Mood: Sad Affect: Labile, Other Thought Process & Associations: Intact, Logical Thought Content: Appropriate Hallucination Type: None Delusion Type: None Suicidal Ideation: No Suicidal Plan: No Suicidal Intention: No Homicidal Ideation: No Homicidal Plan: No Homicidal Intention: No Insight: Fair Judgment: Poor Results Vitals/IOs Vital Signs Date Time Temp Pulse Resp B/P (MAP) Pulse Ox O2 Delivery O2 Flow Rate FiO2 07/07/17 17:00 98.7 94 16 132/63 (86) 98 07/03/17 15:49 Room Air Intake and Output 07/07/17 07/07/17 07/08/17 08:00 16:00 00:00 Intake Total 0 ml 120 ml 240 ml Balance 0 ml 120 ml 240 ml Assessment & Plan Problem List: (1) Moderate early onset dysthymic disorder, in partial remission, with mixed features, with intermittent major depressive episodes, with current episode ICD Codes: F34.1 - Dysthymic disorder Assessment & Plan Increase trazodone to 50 mg by mouth daily at bedtime, continue current treatment plan Justification for Cont. Inpt. Patient would decompensate in a less restrictive setting Request HC Surrog/Guard Advoc?: No Tuan Neil DO Jul 07, 2017 18:09
[2017-07-07] MEDS: MIRTAZAPINE 15 MG TAB PO SCH (20:23)
[2017-07-07] MEDS: traZODone HCL 50 MG TAB PO SCH (20:24)
[2017-07-08 06:00] VITALS: BP 104/53; PULSE 94; RESP 18; TEMP 98.4; O2SAT 97
[2017-07-08] MEDS: glipiZIDE 10 MG TAB PO SCH ×2 (07:00→16:00)
[2017-07-08] MEDS: ATORVASTATIN 40 MG TAB PO SCH (09:00)
[2017-07-08] MEDS: LOSARTAN 50 MG TAB PO SCH (09:00)
[2017-07-08] MEDS: metFORMIN HCL 500 MG TAB PO SCH ×2 (09:00→17:12)
[2017-07-08] MEDS: MEMANTINE HCL 10 MG TAB PO SCH ×2 (09:00→21:59)
[2017-07-08] MEDS: amLODIPine BESYLATE 5 MG TAB PO SCH (09:00)
[2017-07-08] MEDS: DULoxetine HCl DR 60 MG CAP PO SCH (09:00)
[2017-07-08] MEDS: ASPIRIN 81 MG CHEW TAB CHEW SCH (09:00)
[2017-07-08] MEDS: OXYBUTYNIN CHLORIDE 5 MG TAB PO SCH ×2 (09:00→21:59)
[2017-07-08] MEDS ORDERED: GLATIRAMER 40 MG SQ SCH (15:00)
[2017-07-08] MEDS ORDERED: [UNRECOGNIZED DRUG - OTHER] SQ SCH (15:00)
--- NOTE | 2017-07-08 16:08 | HHI.PYPN ---
Subjective Chief Complaint: depression with suicidal ideation Remarks She was seen and case discussed with nursing. Patient interviewed in bed. Patient appears more confused today. She gives some contradicting answers. He is alert and oriented 2. She says her mood as 6 out of 10 and improving but she continues to feel hopeless passive suicidal ideation. She says she is too much of a chicken to hurt herself and has no plans or intent. Per nursing she is sleeping well but she continues to state she is not. Mental Status Examination Appearance: Appropriate (dressed and shirt and pants poor hygiene.) Consciousness: Alert Orientation: Person, Place Motor Activity: Other (uses a walker) Speech: Unremarkable Language: Adequate Fund of Knowledge: Adequate Attention and Concentration: Inadequate (decreased concentration) Memory: Impaired (reports has been more forgetful.) Mood: Sad Affect: Labile, Other Thought Process & Associations: Disorganized Thought Content: Appropriate Hallucination Type: None Delusion Type: None Suicidal Ideation: No Suicidal Plan: No Suicidal Intention: No Homicidal Ideation: No Homicidal Plan: No Homicidal Intention: No Insight: Fair Judgment: Poor Results Vitals/IOs Vital Signs Date Time Temp Pulse Resp B/P (MAP) Pulse Ox O2 Delivery O2 Flow Rate FiO2 07/08/17 06:00 98.4 94 18 104/53 (82) 97 Assessment & Plan Problem List: (1) Moderate early onset dysthymic disorder, in partial remission, with mixed features, with intermittent major depressive episodes, with current episode ICD Codes: F34.1 - Dysthymic disorder Assessment & Plan Continue current treatment plan Justification for Cont. Inpt. Patient will decompensate in a less restrictive setting Request HC Surrog/Guard Advoc?: No Tuan Neil DO Jul 08, 2017 16:08
[2017-07-08 16:25] VITALS: BP 116/63; PULSE 86; RESP 18; TEMP 98; O2SAT 97
[2017-07-08] MEDS: traZODone HCL 50 MG TAB PO SCH (21:59)
[2017-07-08] MEDS: MIRTAZAPINE 15 MG TAB PO SCH (21:59)
[2017-07-09 06:18] VITALS: BP 109/59; PULSE 84; RESP 16; TEMP 97.4; O2SAT 98
[2017-07-09] MEDS: glipiZIDE 10 MG TAB PO SCH ×2 (07:11→16:24)
[2017-07-09] MEDS: LOSARTAN 50 MG TAB PO SCH (09:00)
[2017-07-09] MEDS: amLODIPine BESYLATE 5 MG TAB PO SCH (09:00)
[2017-07-09] MEDS: MEMANTINE HCL 10 MG TAB PO SCH ×2 (09:21→21:19)
[2017-07-09] MEDS: ATORVASTATIN 40 MG TAB PO SCH (09:21)
[2017-07-09] MEDS: ASPIRIN 81 MG CHEW TAB CHEW SCH (09:21)
[2017-07-09] MEDS: DULoxetine HCl DR 60 MG CAP PO SCH (09:21)
[2017-07-09] MEDS: OXYBUTYNIN CHLORIDE 5 MG TAB PO SCH ×2 (09:21→21:19)
[2017-07-09] MEDS: metFORMIN HCL 500 MG TAB PO SCH ×2 (09:22→18:37)
--- NOTE | 2017-07-09 15:40 | HHI.PYPN ---
Subjective Chief Complaint: depression with suicidal ideation Remarks Patient seen in day room with nurse Reji, nurse practitioner Na, medical student Rob, chart reviewed, patient compliant medication. Patient continues to isolate depressed though denies suicidality at this time. However he Asking if she can go back to her bedroom. Review of Systems Except as stated in HPI: all other systems reviewed are Neg Mental Status Examination Appearance: Appropriate (dressed and shirt and pants poor hygiene.) Consciousness: Alert Orientation: Person, Place Motor Activity: Other (uses a walker) Speech: Unremarkable Language: Adequate Fund of Knowledge: Adequate Attention and Concentration: Inadequate (decreased concentration) Memory: Impaired (reports has been more forgetful.) Mood: Sad Affect: Labile, Other Thought Process & Associations: Disorganized Thought Content: Appropriate Hallucination Type: None Delusion Type: None Suicidal Ideation: No Suicidal Plan: No Suicidal Intention: No Homicidal Ideation: No Homicidal Plan: No Homicidal Intention: No Insight: Fair Judgment: Poor Results Vitals/IOs Vital Signs Date Time Temp Pulse Resp B/P (MAP) Pulse Ox O2 Delivery O2 Flow Rate FiO2 07/09/17 06:18 97.4 84 16 109/59 (76) 98 Intake and Output 07/09/17 07/09/17 07/10/17 08:00 16:00 00:00 Intake Total 720 ml Balance 720 ml Assessment & Plan Problem List: (1) Moderate early onset dysthymic disorder, in partial remission, with mixed features, with intermittent major depressive episodes, with current episode ICD Codes: F34.1 - Dysthymic disorder Assessment & Plan Estimated LOS: days patient continues depressed though now denies suicidality. Continues to isolate also. Justification for Cont. Inpt. At this time patient decompensated placed in a lower level of care Discharge Planning Patient may return home with family Request HC Surrog/Guard Advoc?: No Joe Linton MD Jul 09, 2017 15:40
[2017-07-09 18:10] VITALS: BP 144/78; PULSE 94; RESP 18; TEMP 97.4; O2SAT 97
[2017-07-09] MEDS: traZODone HCL 50 MG TAB PO SCH (21:19)
[2017-07-09] MEDS: MIRTAZAPINE 15 MG TAB PO SCH (21:19)
[2017-07-10 06:00] VITALS: BP 113/58; PULSE 99; RESP 18; TEMP 98.7; O2SAT 97
[2017-07-10] MEDS: glipiZIDE 10 MG TAB PO SCH ×2 (06:47→16:16)
[2017-07-10] MEDS: amLODIPine BESYLATE 5 MG TAB PO SCH (09:00)
[2017-07-10] MEDS: LOSARTAN 50 MG TAB PO SCH (09:00)
[2017-07-10] MEDS: ATORVASTATIN 40 MG TAB PO SCH (09:02)
[2017-07-10] MEDS: DULoxetine HCl DR 60 MG CAP PO SCH (09:02)
[2017-07-10] MEDS: metFORMIN HCL 500 MG TAB PO SCH ×2 (09:02→18:27)
[2017-07-10] MEDS: OXYBUTYNIN CHLORIDE 5 MG TAB PO SCH ×2 (09:03→21:31)
[2017-07-10] MEDS: MEMANTINE HCL 10 MG TAB PO SCH ×2 (09:03→21:31)
[2017-07-10] MEDS: ASPIRIN 81 MG CHEW TAB CHEW SCH (09:04)
--- NOTE | 2017-07-10 16:22 | HHI.PYPN ---
Subjective Chief Complaint: depression with suicidal ideation Remarks Patient seen in the day room with nurse practitioner Na medical student Rob and nurse Joya, chart review, patient compliant medication. And somewhat more anxious today nervous and irritable, it appears she may be having some anticipatory anxiety related to possible discharge. She still questions whether she should go home although stay with her son. For now continue treatment Review of Systems Except as stated in HPI: all other systems reviewed are Neg Mental Status Examination Appearance: Appropriate (dressed and shirt and pants poor hygiene.) Consciousness: Alert Orientation: Person, Place Motor Activity: Other (uses a walker) Speech: Unremarkable Language: Adequate Fund of Knowledge: Adequate Attention and Concentration: Inadequate (decreased concentration) Memory: Impaired (reports has been more forgetful.) Mood: Sad Affect: Labile, Other Thought Process & Associations: Disorganized Thought Content: Appropriate Hallucination Type: None Delusion Type: None Suicidal Ideation: No Suicidal Plan: No Suicidal Intention: No Homicidal Ideation: No Homicidal Plan: No Homicidal Intention: No Insight: Fair Judgment: Poor Results Vitals/IOs Vital Signs Date Time Temp Pulse Resp B/P (MAP) Pulse Ox O2 Delivery O2 Flow Rate FiO2 07/10/17 06:00 98.7 99 18 113/58 (76) 97 Intake and Output 07/10/17 07/10/17 07/11/17 08:00 16:00 00:00 Intake Total 240 ml Balance 240 ml Assessment & Plan Problem List: (1) Moderate early onset dysthymic disorder, in partial remission, with mixed features, with intermittent major depressive episodes, with current episode ICD Codes: F34.1 - Dysthymic disorder Assessment & Plan Estimated LOS: days patient remains somewhat depressed at times now appears a little bit confusing questioning. For now continue treatment Justification for Cont. Inpt. At this time patient would decompensated placed in a lower level of care Discharge Planning Need to consider return to her own apartment or go with her son Request HC Surrog/Guard Advoc?: No Joe Linton MD Jul 10, 2017 16:22
[2017-07-10 18:47] VITALS: BP 144/67; PULSE 101; RESP 16; TEMP 97.6; O2SAT 98
[2017-07-10] MEDS: traZODone HCL 50 MG TAB PO SCH (21:31)
[2017-07-10] MEDS: MIRTAZAPINE 15 MG TAB PO SCH (21:31)
[2017-07-11 06:18] VITALS: BP 114/58; PULSE 98; RESP 18; TEMP 98.4; O2SAT 95
[2017-07-11] MEDS: glipiZIDE 10 MG TAB PO SCH ×2 (06:43→16:00)
[2017-07-11] MEDS: MEMANTINE HCL 10 MG TAB PO SCH ×2 (09:16→20:05)
[2017-07-11] MEDS: metFORMIN HCL 500 MG TAB PO SCH ×2 (09:16→17:41)
[2017-07-11] MEDS: LOSARTAN 50 MG TAB PO SCH (09:16)
[2017-07-11] MEDS: ASPIRIN 81 MG CHEW TAB CHEW SCH (09:16)
[2017-07-11] MEDS: DULoxetine HCl DR 60 MG CAP PO SCH (09:16)
[2017-07-11] MEDS: OXYBUTYNIN CHLORIDE 5 MG TAB PO SCH ×2 (09:16→20:05)
[2017-07-11] MEDS: amLODIPine BESYLATE 5 MG TAB PO SCH (09:16)
[2017-07-11] MEDS: ATORVASTATIN 40 MG TAB PO SCH (09:16)
--- NOTE | 2017-07-11 14:53 | HHI.PYPN ---
Subjective Chief Complaint: depression with suicidal ideation Remarks Patient seen in her room with nurse practitioner Na and nurse Christina, chart review, patient compliant medication. Patient laying in bed. Though she showing some increased mood and affect, also with some increased eye contact, now denying suicidality homicidality voices or visions. Is coping when can she go home. Patient states she would like to stay with her son for a period of time prior going to an apartment. Will have counselor verify if this possibility otherwise for now continue treatment Review of Systems Except as stated in HPI: all other systems reviewed are Neg Mental Status Examination Appearance: Appropriate (dressed and shirt and pants poor hygiene.) Consciousness: Alert Orientation: Person, Place Motor Activity: Other (uses a walker) Speech: Unremarkable Language: Adequate Fund of Knowledge: Adequate Attention and Concentration: Inadequate (decreased concentration) Memory: Impaired (reports has been more forgetful.) Mood: Sad Affect: Labile, Other Thought Process & Associations: Disorganized Thought Content: Appropriate Hallucination Type: None Delusion Type: None Suicidal Ideation: No Suicidal Plan: No Suicidal Intention: No Homicidal Ideation: No Homicidal Plan: No Homicidal Intention: No Insight: Fair Judgment: Poor Results Vitals/IOs Vital Signs Date Time Temp Pulse Resp B/P (MAP) Pulse Ox O2 Delivery O2 Flow Rate FiO2 07/11/17 06:18 98.4 98 18 114/58 (38) 95 Assessment & Plan Problem List: (1) Moderate early onset dysthymic disorder, in partial remission, with mixed features, with intermittent major depressive episodes, with current episode ICD Codes: F34.1 - Dysthymic disorder Assessment & Plan Estimated LOS: days patient somewhat more intense today with improved affect. Denying suicidality homicidality voices or visions. Compliant medications. Placement may be somewhat problematic. For now continue treatment Justification for Cont. Inpt. At this time patient will decompensate if place to the lower level of care Discharge Planning Possibly the return home to her apartment or to stay with her son Request HC Surrog/Guard Advoc?: Joe Gould MD Jul 11, 2017 14:53
[2017-07-11 17:10] VITALS: BP 116/56; PULSE 98; RESP 18; TEMP 97.6; O2SAT 99
[2017-07-11] MEDS: traZODone HCL 50 MG TAB PO SCH (20:05)
[2017-07-11] MEDS: MIRTAZAPINE 15 MG TAB PO SCH (20:05)
[2017-07-12 05:44] VITALS: BP 123/61; PULSE 84; RESP 18; TEMP 97.8; O2SAT 99
[2017-07-12] MEDS: glipiZIDE 10 MG TAB PO SCH ×2 (06:15→16:00)
[2017-07-12] MEDS ORDERED: GLIP10TA6 PO (09:03)
[2017-07-12] MEDS ORDERED: GLAT1INJ SQ (09:03)
[2017-07-12] MEDS ORDERED: NAME10TA PO (09:03)
[2017-07-12] MEDS ORDERED: ASPI-516 CHEW (09:03)
[2017-07-12] MEDS ORDERED: CYMB60CA PO (09:03)
[2017-07-12] MEDS ORDERED: TRAZ50TA12 PO (09:03)
[2017-07-12] MEDS ORDERED: METF500T PO (09:03)
[2017-07-12] MEDS ORDERED: MECL12.574 PO (09:03)
[2017-07-12] MEDS ORDERED: MIRTA15 PO (09:03)
[2017-07-12] MEDS ORDERED: OXYB5TAB8 PO (09:03)
--- NOTE | 2017-07-12 09:10 | HHI.DS ---
Psychiatry Discharge Summary Inpatient Psychiatric care?: Yes Advance Directive: No Reason Not Provided: Due to Patient Condition Mental Health AdvanceDirective: No Health Care Proxy: No Admission Admission Date Jul 03, 2017 at 16:10 Admission Diagnosis: (1) Moderate early onset dysthymic disorder, in partial remission, with mixed features, with intermittent major depressive episodes, with current episode ICD Code: F34.1 - Dysthymic disorder Brief History Patient is a 71 year old white female comes here voluntarily being brought in by her son with complaints of increased depression with suicidal ideation, and ideation. Patient seen screened in the ED urine toxicology positive for opiates negative for alcohol. Upon review of EMR this is patient's first visit with us. At the present time patient sitting quietly in her room on 2500 nurse Alina present throughout session. Patient given a somewhat vague amorphous history. States she's been depressed most of her life. Though she denies prior psychiatric hospitalization. She is vague and somewhat confusing about past psychiatric contact. She states she has been on Cymbalta for many years though she is not certain of the reason why. She does not see a psychiatrist at the present time. She lives by herself. There are no pets in the house. She basically is homebound able to do her toileting and some cooking but her son does her shopping. She spends the day in bed or watching TV. He states his depression is gotten worse these initial and mid insomnia, a.m. anergy, decreased appetite, there is a significant anhedonia, patient denies any self- medicating, denies any alcohol or drug use with this. Though she states she has had adult beverages in the past. Patient fairly well oriented, does know she is in a hospital [facility]. Need encouragement to identify [place] though she thought it was in another state. She just somewhat that was 1999 and June She denies any voices or visions with this. Patient denied any physical or sexual abuse as a child. Is vague about any mental health history in the family. At this time patient meets criteria for further inpatient psychiatric hospitalization and observation. Patient does state she would rather be right now that she is no reason for living. Though she is somewhat vague about taking the suicide pill. We did have a living will with her therapist states no resuscitation. We'll have hospitalist consult was will have neurology consult was related to her MS. We did discuss medications we'll add Remeron 15 mg at at bedtime. Consideration of a weaning or tapering of the Cymbalta. Will attempt to reach patient's son to arrange for family meeting to discuss medication treatment possible placement issues Tobacco Use In Past 30 Days: No Tobacco Past 30 Days Alcohol Use: Monthly or Less Hospital Course Patient's hospital course showed slow improvement in her depression. She continued to show some isolation staying in her bed for significant periods of time getting out for meals and toileting. She is been compliant with the medications. She now denies suicidality homicidality voices or visions. She states she's had good conversations with her son. Is willing to have her come and stay with him at the present time. Over the past few days patient showed some mild increased anxiety is really discussed more formally discharge plans and placement issues. It appears she is settling in to this environment. Orbit the present time refill patient ration maximum benefit of this hospitalization. Patient son is willing to have her come and stay with him for a while. Thus patient will be discharged today with Rx 1 month follow-up [facility] outpatient medication management. Follow-up with her PCP Results Blood Pressure 123 / 61 Vital Signs Date Time Temp Pulse Resp B/P (MAP) Pulse Ox O2 Delivery O2 Flow Rate FiO2 07/12/17 05:44 97.8 84 18 123/61 (81) 99 Laboratory Results Test 07/04/17 10:40 Cholesterol Level 124 MG/DL (120-200) HDL Cholesterol 38.8 MG/DL (40.0-60.0) Hemoglobin A1c 6.6 % (4.3-6.0) LDL Cholesterol 31 MG/DL (0-99) Triglycerides Level 269 MG/DL (42-150) Summary of Procedures None done Pending results at discharge: No Medications # of Antipsychotic meds at D/C: 0 Approp Antipsych med options 1 - Minimum of three failed multiple trials of monotherapy. 2 - Documented plan to taper to monotherapy due to previous use of multiple meds OR cross-taper in progress at D/C. 3 - Documentation of augmentation of Clozapine. 4 - Justification other than those listed in allowable values 1-3, document here : Discharge Discharge Date: Jul 12, 2017 Discharge Diagnosis: (1) Moderate early onset dysthymic disorder, in partial remission, with mixed features, with intermittent major depressive episodes, with current episode Diagnosis: Principal ICD Code: F34.1 - Dysthymic disorder Pt Condition on Discharge: Stable Discharge Disposition: Discharge Home Discharge Instructions Diet Instructions: As Tolerated, No Restrictions Activities you can perform: Regular-No Restrictions Scheduled Appointment: Kaveh Quintero Discharge Time > 30 minutes Mental Status Examination Appearance: Appropriate (dressed and shirt and pants poor hygiene.) Consciousness: Alert Orientation: Person, Place Motor Activity: Other (uses a walker) Speech: Unremarkable Language: Adequate Fund of Knowledge: Adequate Attention and Concentration: Inadequate (decreased concentration) Memory: Impaired (reports has been more forgetful.) Mood: Sad Affect: Labile, Other Thought Process & Associations: Disorganized Thought Content: Appropriate Hallucination Type: None Delusion Type: None Suicidal Ideation: No Suicidal Plan: No Suicidal Intention: No Homicidal Ideation: No Homicidal Plan: No Homicidal Intention: No Insight: Fair Judgment: Poor Discharge/Advance Care Plan Health Problems: (1) Moderate early onset dysthymic disorder, in partial remission, with mixed features, with intermittent major depressive episodes, with current episode Goals to promote your health * To prevent worsening of your condition and complications * To maintain your health at the optimal level Directions to meet your goals Take your medications as prescribed Follow your dietary instruction Follow activity as directed Keep your appointments as scheduled Take your immunizations and boosters as scheduled If your symptoms worsen call your PCP, if no PCP go to Urgent Care Center or Emergency Room For 25/12 questions related to your inpatient stay or results of tests pending at discharge, please contact Dr. Joe Linton at Smoking is Dangerous to Your Health. Avoid second hand smoking Joe Linton MD Jul 12, 2017 09:10
[2017-07-12] MEDS: LOSARTAN 50 MG TAB PO SCH (09:49)
[2017-07-12] MEDS: metFORMIN HCL 500 MG TAB PO SCH (09:49)
[2017-07-12] MEDS: amLODIPine BESYLATE 5 MG TAB PO SCH (09:49)
[2017-07-12] MEDS: DULoxetine HCl DR 60 MG CAP PO SCH (09:49)
[2017-07-12] MEDS: OXYBUTYNIN CHLORIDE 5 MG TAB PO SCH (09:49)
[2017-07-12] MEDS: ATORVASTATIN 40 MG TAB PO SCH (09:49)
[2017-07-12] MEDS: ASPIRIN 81 MG CHEW TAB CHEW SCH (09:49)
[2017-07-12] MEDS: MEMANTINE HCL 10 MG TAB PO SCH (09:50)
== END 2017-07-12 17:10 | disposition home or self-care (01) | DRG 881 ==
LOC: NEPC 20:09 → NEDA 07-03 16:10 → H250 07-03 17:09
PROVIDERS: ADMIT Psychiatry & Neurology Psychiatry; ATTEND Psychiatry & Neurology Psychiatry
DX: F34.1 Dysthymic disorder (principal); G35 Multiple sclerosis; R45.851 Suicidal ideations; E11.9 Type 2 diabetes mellitus without complications; R63.0 Anorexia; I10 Essential (primary) hypertension; G89.4 Chronic pain syndrome; E78.5 Hyperlipidemia, unspecified; Z79.84 Long term (current) use of oral hypoglycemic drugs; G47.00 Insomnia, unspecified
CPT/HCPCS: 80048; 80053; 80061; 80307; 82306; 82607; 82948; 83036; 84443; 85025; 93005

== ENCOUNTER 2017-09-26 17:02 | Inpatient (IN) | payer MEDICARE, BC, OTHER ==
[~2017-09-26] VITALS: Ht 157.5 cm; Wt 84.5 kg
[~2017-09-26 17:02] MED LIST: AMLO5 PO; ASPI-516 CHEW; CYMB60CA PO; GLAT1INJ SQ; GLIP10TA6 PO; MECL12.574 PO; METF500T PO; MIRTA15 PO; NAME10TA PO; OXYB5TAB8 PO; TRAZ50TA12 PO
[2017-09-26 17:18] VITALS: BP 144/70; PULSE 80; TEMP 98.2; O2SAT 96
[2017-09-26 18:00] VITALS: BP 159/87; PULSE 75; RESP 16; TEMP 98.3; O2SAT 99
--- NOTE | 2017-09-26 18:09 | PD ---
HPI Chief Complaint: Psychiatric Symptoms Time Seen by Provider: 17:19 Travel History International Travel<30 days: No Contact w/Intl Traveler<30days: No Traveled to known affect area: No History of Present Illness HPI 71-year-old female that presents to the ED for evaluation of a crack. Patient was [place] acted by police after apparently she made threats that she was given a end her life. Per patient she has no hope in life and does not want to live anymore. She was not really specific as to why this happened or how long this been going on with the patient is been going on for "a while". When asked if patient takes anything for the patient she says that she does but she does not work for her. She was here recently in June for similar. She states that she does have multiple medical issues and takes multiple medications including for diabetes, high blood pressure and cholesterol. Patient states that she has no plan to end her life and states that she is "too much of a chicken to do anything ". She states that she does want help but she does not know what we are going to be able to do as she again has no "reason to live ". She denies any drug abuse or alcohol. She denies any hallucinations. Symptoms appear to be ongoing for some time but worse today. She states that she does not see a psychiatrist at this time. Nothing makes symptoms better. PFSH Past Medical History Arthritis: No Asthma: No Autoimmune Disease: No Anxiety: Yes Depression: Yes Heart Rhythm Problems: No Cancer: Yes Cardiovascular Problems: No High Cholesterol: No Chemotherapy: No Chest Pain: No Congestive Heart Failure: No COPD: No Cerebrovascular Accident: No Diabetes: Yes Patient Takes Glucophage: No Endocrine: No GERD: No Genitourinary: No Headaches: Yes (Temproral to frontal) Hiatal Hernia: No Hypertension: Yes Immune Disorder: No Kidney Stones: No Musculoskeletal: Yes (lower back ) Neurologic: Yes (MS) Psychiatric: Yes (Patient states she has had issues all her life.) Reproductive: No Respiratory: No Migraines: No Radiation Therapy: No Renal Failure: No Seizures: No Sickle Cell Disease: No Sleep Apnea: No Thyroid Disease: No Ulcer: No ?: Not Past Surgical History Abdominal Surgery: Yes AICD: No Arteriovenous Shunt: No Cardiac Surgery: No Ear Surgery: No Endocrine Surgery: No Eye Surgery: No Genitourinary Surgery: No Gynecologic Surgery: Yes (hysterectomy ) Insulin Pump: No Joint Replacement: No Oral Surgery: No Pacemaker: No Thoracic Surgery: No Other Surgery: Yes Social History Alcohol Use: No Tobacco Use: No Substance Use: No Allergies-Medications (Allergen,Severity, Reaction): Coded Allergies: No Known Allergies (Unverified , 07/03/17) Reported Meds & Prescriptions Reported Meds & Active Scripts Active Trazodone (Trazodone HCl) 50 Mg Tab 50 Mg PO HS Mirtazapine 15 Mg Tab 30 Mg PO HS Metformin (Metformin HCl) 500 Mg Tab 500 Mg PO BIDPC Meclizine (Meclizine HCl) 12.5 Mg Tab 12.5 Mg PO TID PRN Cymbalta DR (Duloxetine HCl) 60 Mg Capdr 60 Mg PO DAILY Aspirin 81 Mg Chew 81 Mg CHEW DAILY Glipizide 10 Mg Tab 20 Mg PO BIDAC Take 30 minutes before a meal Copaxone Inj (Glatiramer Inj) 40 Mg/Ml Syr 40 Mg SQ 3XWEEK Use 3 times/week at least 48 hrs apart Ditropan (Oxybutynin Chloride) 5 Mg Tab 5 Mg PO Q12HR Namenda (Memantine) 10 Mg Tab 10 Mg PO BID Norvasc (Amlodipine Besylate) 5 Mg Tab 5 Mg PO DAILY Review of Systems Except as stated in HPI: all other systems reviewed are Neg Physical Exam Narrative GENERAL: SKIN: Warm and dry. HEAD: Atraumatic. Normocephalic. EYES: Pupils equal and round. No scleral icterus. No injection or drainage. ENT: No nasal bleeding or discharge. Mucous membranes pink and moist. Tongue is midline. No uvula deviation. NECK: Trachea midline. No JVD. CARDIOVASCULAR: Regular rate and rhythm. RESPIRATORY: No accessory muscle use. Clear to auscultation. Breath sounds equal bilaterally. GASTROINTESTINAL: Abdomen soft, non-tender, nondistended. Hepatic and splenic margins not palpable. MUSCULOSKELETAL: Extremities without clubbing, cyanosis, or edema. No obvious deformities. Full range of motion of the upper and lower extremities bilaterally. 2+ pulses bilaterally. NEUROLOGICAL: Awake and alert. No obvious cranial nerve deficits. Motor grossly within normal limits. Five out of 5 muscle strength in the arms and legs. Normal speech. PSYCHIATRIC: Depressed mood and affect; insight and judgment normal. Data Data Last Documented VS Vital Signs Date Time Temp Pulse Resp B/P (MAP) Pulse Ox O2 Delivery O2 Flow Rate FiO2 09/26/17 17:18 98.2 80 144/70 (94) 96 Room Air Orders Orders Complete Blood Count With Diff (09/26/17 17:10) Comprehensive Metabolic Panel (09/26/17 17:10) Thyroid Stimulating Hormone (09/26/17 17:10) Psych Screen (09/26/17 17:10) Drug Screen, Random Urine (09/26/17 17:10) Alcohol (Ethanol) (09/26/17 17:10) Salicylates (Aspirin) (09/26/17 17:10) Tylenol (Acetaminophen) (09/26/17 17:10) Diet Regular Basic (09/26/17 Dinner) MDM Medical Decision Making Medical Screen Exam Complete: Yes Emergency Medical Condition: Yes Medical Record Reviewed: Yes Differential Diagnosis Depression versus suicidal ideation versus anxiety versus adjustment disorder versus mood disorder versus bipolar disorder versus schizophrenia versus paranoid disorder versus psychosis versus substance abuse versus alcohol abuse versus alcohol induced psychosis versus homicidality addition versus cutting versus personality disorder Narrative Course 71-year-old female that presents to the ED for evaluation of psychiatry evaluation. Patient was properly examined and was found to have signs and symptoms very consistent appears to be likely psychiatric. No significant medical distress. Labs were drawn. Patient will be medically clear. Okay to be seen by psych. Mental health screening was discussed with the patient. Diagnosis Primary Impression: Depression Qualified Codes: F33.1 - Major depressive disorder, recurrent, moderate Colby Gil Sep 26, 2017 18:09
[2017-09-26 21:33] LABS: AUTOMATED NEUTROPHIL # 7.9 TH/MM3 (1.8-7.7); BASOPHIL # 0.1 TH/MM3 (0-0.2); BASOPHIL % 0.4 % (0.0-2.0); EOSINOPHIL # 0.2 TH/MM3 (0-0.4); EOSINOPHIL % 1.7 % (0.0-4.0); HEMATOCRIT 42.6 % (35.0-46.0); HEMOGLOBIN 14.6 GM/DL (11.6-15.3); LYMPH % 28.5 % (9.0-44.0); LYMPHOCYTE # 3.6 TH/MM3 (1.0-4.8); MEAN CELL VOLUME 82.4 FL (80.0-100.0); MEAN CORPUSCULAR HEMOGLOBIN 28.3 PG (27.0-34.0); MEAN CORPUSCULAR HGB CONC 34.3 % (32.0-36.0); MEAN PLATELET VOLUME 7.9 FL (7.0-11.0); MONO % 5.9 % (0.0-8.0); MONOCYTE # 0.7 TH/MM3 (0-0.9); NEUT % 63.5 % (16.0-70.0); PLATELET COUNT 233 TH/MM3 (150-450); RED BLOOD COUNT 5.17 MIL/MM3 (4.00-5.30); RED CELL DISTRIBUTION WIDTH 15.3 % (11.6-17.2); WHITE BLOOD COUNT 12.5 TH/MM3 (4.0-11.0)
[2017-09-26 22:11] LABS: ALBUMIN 3.9 GM/DL (3.4-5.0); ALKALINE PHOSPHATASE 57 U/L (45-117); ALT (GPT) 27 U/L (10-53); AST (GOT) 23 U/L (15-37); BICARBONATE 21.6 MEQ/L (21.0-32.0); BLOOD UREA NITROGEN 19 MG/DL (7-18); CALCIUM 10.3 MG/DL (8.5-10.1); CHLORIDE 105 MEQ/L (98-107); CREATININE 1.37 MG/DL (0.50-1.00); GLOMERULAR FILTRATION RATE 38 ML/MIN (>89); SODIUM (NA) 141 MEQ/L (136-145); TOTAL BILIRUBIN ADULT 0.6 MG/DL (0.2-1.0); TOTAL PROTEIN 8.2 GM/DL (6.4-8.2)
[2017-09-26 22:24] LABS: ACETAMINOPHEN LESS THAN 2.0 MCG/ML (10.0-30.0)
[2017-09-26 22:26] LABS: GLUCOSE,RANDOM 46 MG/DL (74-106)
[2017-09-26 22:39] LABS: BACTERIA, URINE RARE /hpf; BILIRUBIN, URINE NEG (NEG); BLOOD, URINE NEG (NEG); GLUCOSE,URINE NEG (NEG); KETONE, URINE NEG (NEG); NITRITE,URINE NEG (NEG); PH, URINE 5.5 (5.0-8.5); SQUAMOUS EPITHELIAL CELL URINE 9 /hpf (0-5); URINE COLOR YELLOW (YELLW/STRAW); URINE LEUKOCYTE ESTERASE NEG (NEG)
[2017-09-26] MEDS ORDERED: OLME1TAB PO (23:21)
[2017-09-26] MEDS ORDERED: BUPR300T PO (23:21)
[2017-09-26] MEDS ORDERED: TRAZ1TAB14 PO (23:21)
[2017-09-27] MEDS ORDERED: ACETAMINOPHEN 325 MG TAB PO PRN (00:15)
[2017-09-27] MEDS ORDERED: MAGNESIUM HYDROXIDE SUSP 30 ML CUP PO PRN (00:15)
[2017-09-27] MEDS ORDERED: LORazepam 0.5 MG TAB age > 65 yrs PO PRN (00:15)
[2017-09-27] MEDS ORDERED: LORazepam 2 MG/ML VIAL - age > 65 yrs IM PRN (00:15)
[2017-09-27 00:30] VITALS: BP 148/82; PULSE 88; RESP 16; TEMP 97.8; O2SAT 99
[2017-09-27 05:18] VITALS: BP 134/63; PULSE 91; RESP 16; TEMP 98; O2SAT 97
[2017-09-27] MEDS: glipiZIDE 10 MG TAB PO SCH ×2 (07:00→16:00)
[2017-09-27] MEDS: ASPIRIN 81 MG CHEW TAB CHEW SCH (09:00)
[2017-09-27] MEDS ORDERED: NICOTINE 21 MG/24 HR PATCH T-DERMAL SCH (09:00)
[2017-09-27] MEDS ORDERED: DULoxetine HCl DR 60 MG CAP PO SCH (09:00)
[2017-09-27] MEDS: LOSARTAN 50 MG TAB PO SCH (09:00)
[2017-09-27] MEDS ORDERED: buPROPion HCL 150 MG SUSTAINED RELEASE TAB PO SCH (09:00)
[2017-09-27] MEDS: metFORMIN HCL 500 MG TAB PO SCH ×2 (09:00→18:00)
--- NOTE | 2017-09-27 11:21 | HHI.HP ---
Provisional Diagnosis Admission Date Sep 27, 2017 at 00:02 [place] I. 1. Dysthymic disorder Rule out overlying major adjustment reaction [place] II. 1. Some mixed cluster B/C personality traits Certification of Person's Competence To Provide Express and Informed Consent I have personally examined Rosa Kim , a person being served at [facility] on, Sep 27, 2017 11:21. Express and informed consent means consent voluntarily given in writing, by a competent person, after sufficient explanation and disclosure of the subject matter involved to enable the person to make a knowing and willful decision without any element of force, fraud, deceit, duress, or other form of constraint or coercion. This person is 18 years of age or older, is not now known to be incompetent to consent to treatment with a guardian advocate, and does not have a health care surrogate or proxy currently making medical treatment decisions. I have found this person to be one of the following: [x] Competent to provide express and informed consent, as defined above, for voluntary admission to this facility and is competent to provide express and informed consent for treatment. He/she has the consistent capacity to make well reasoned, willful, and knowing decisions concerning his or her medical or mental health treatment. The person fully and consistently understands the purpose of the admission for examination/placement and is fully capable of personally exercising all rights assured [place] Incompetent to provide express and informed consent to voluntary admission, and this is incompetent to provide express and informed consent to treatment. The person must be transferred to involuntary status and a petition for a guardian advocate filed with the Circuit Court. [] Refusing to provide express and informed consent to voluntary admission but is competent to provide express and informed consent for treatment. The person must be discharged or transferred to involuntary status. Form shall be completed within 24 hours of a person's arrival at the receiving facility and filed in the clinical record of each person: 1. Admitted on a voluntary basis 2. Permitted to provide express and informed consent to his/her own treatment 3. Allowed to transfer from involuntary to voluntary status 4. Prior to permitting a person to consent to his or her own treatment after having been previously found incompetent to consent to treatment. History of Present Illness Capacity: Has Capacity Psych Chief Complaint: Depression, SI HPI Ms. Kim is a 71-year-old female with a chart history of dysthymic disorder who presents under a Jasso act alleging that the patient stated that she had nothing to live for and did not want to live. Reviewing the electronic medical record, I note that the patient was admitted under Dr. Linton in June/July of this year. Patient apparently had some response to Remeron , and it appears that she was discharged on a dose of 30 mg. Patient seen and examined with nurse. Chart reviewed. Case discussed with nursing staff. On my examination today, the patient presents with some mixed cluster B/C personality traits. She affects a somewhat irreverent and playful interpersonal style that seems a little inappropriate to the circumstance. She seems to be enjoying the attention of the interview. She relates that "I don't want to live anymore. My life has really turned into nothing. My family doesn' t need me." She relates that she feels chronically depressed and she has " never really snapped out of" her depressed state in the several decades she has been experiencing this issue. She reports that recently she has been contemplating ending her life but is "too much of a chicken" to take any steps to do so. She does not verbalize any urge to hurt herself on the unit. She does report some sleep and appetite difficulties lately. No hypomanic or manic symptoms. No audiovisual hallucinations, delusions or other psychotic symptoms. Remainder of the psychiatric ROS is negative. No acute physical complaints. Past psychiatric history: Patient has a history of dysthymic disorder. She is not currently under the care of a psychiatrist. She reports that she became nonadherent with medications shortly after leaving the inpatient unit last time because she did not think that she needed them. Most recent psychiatric admission was here at [facility]. She does report an extensive history of previous psychiatric treatment and notes that she has been on several different classes of antidepressants in the past, all reportedly without benefit. She denies a history of suicide attempts. Family history: The patient denies a family history of mental illness or suicide. 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 Social history: The patient is from [place]. She lives alone. She has a son and 2 grandchildren, although their relationship is reportedly somewhat strained. She is . 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 She denies any history. Denies any access to guns or firearms. She is of the [employer] tracy. Review of Systems Except as stated in HPI: all other systems reviewed are Neg Past Family Social History Coded Allergies: No Known Allergies (Unverified , 07/03/17) Past Medical History See electronic medical record Active Scripts Metformin (Metformin) 500 Mg Tab, 500 MG PO BIDPC for Blood Sugar Management, # 60 TAB 0 Refills Prov:Joe Linton MD 07/12/[address] (Cymbalta ) 60 Mg Capdr, 60 MG PO DAILY for health, #30 CAP 0 Refills Prov:Joe Linton MD 07/12/17 Aspirin (Aspirin) 81 Mg Chew, 81 MG CHEW DAILY for health, #30 TAB 0 Refills Prov:Joe Linton MD 07/12/17 Glipizide (Glipizide) 10 Mg Tab, 20 MG PO BIDAC for Blood Sugar Management, # 120 TAB 0 Refills Take 30 minutes before a meal Prov:Joe Linton MD 07/12/17 Glatiramer Inj (Copaxone Inj) 40 Mg/Ml Syr, 40 MG SQ 3XWEEK for Multiple Sclerosis, #14 SYRINGE 0 Refills Use 3 times/week at least 48 hrs apart Prov:Joe Linton MD 07/12/17 Reported Medications Bupropion HCl ER 24 HR (Bupropion HCl ER 24 HR) 300 Mg Tab, 300 MG PO DAILY for Control Depression, TAB 0 Refills 09/26/17 Olmesartan (Benicar) 20 Mg Tab, 20 MG PO DAILY for Blood Pressure Management, # 30 TAB 0 Refills 09/26/17 Trazodone (Trazodone) 150 Mg Tablet, 150 MG PO HS for Control Depression, #30 TAB 0 Refills 09/26/17 Discontinued Scripts Trazodone (Trazodone) 50 Mg Tab, 50 MG PO HS for health, #30 TAB 0 Refills Prov:Joe Linton MD 07/12/17 Mirtazapine (Mirtazapine) 15 Mg Tab, 30 MG PO HS for health, #31 TAB 0 Refills Prov:Joe Linton MD 07/12/17 Meclizine (Meclizine) 12.5 Mg Tab, 12.5 MG PO TID Y for VERTIGO, #60 TAB 0 Refills Prov:Joe Linton MD 07/12/17 Oxybutynin (Ditropan) 5 Mg Tab, 5 MG PO Q12HR for Urinary Symptom Managemen, # 60 TAB 0 Refills Prov:Joe Linton MD 07/12/17 Memantine (Namenda) 10 Mg Tab, 10 MG PO BID for Alzheimer Disease, #60 TAB 0 Refills Prov:Joe Linton MD 07/12/17 Amlodipine (Norvasc) 5 Mg Tab, 5 MG PO DAILY for Blood Pressure Management, #30 TAB Prov:Patrick Patterson MD 07/05/17 Current Medications Medications (Trade) Dose Ordered Sig/Ghassan Route Start Time Stop Time Status Last Admin (Ativan) 0.5 mg Q6H PRN PO 09/27/17 00:15 (Ativan Inj) 0.5 mg Q6H PRN IM 09/27/17 00:15 (Tylenol) 650 mg Q4H PRN PO 09/27/17 00:15 (Milk Of Magnesia Liq) 30 ml DAILY PRN PO 09/27/17 00:15 (Mag-Al Plus Susp Liq) 30 ml Q6H PRN PO 09/27/17 00:15 (Habitrol 21 Mg Patch.24 Hr) 1 patch DAILY T-DERMAL 09/27/17 09:00 Miscellaneous Information 1 HS T-DERMAL 09/27/17 21:00 (Aspirin Chew) 81 mg DAILY CHEW 09/27/17 09:00 (Glucotrol) 20 mg BIDAC PO 09/27/17 07:00 Patient Own Medication PT OWN MED: GLATIRA... MoWeFr@0900 SQ 09/28/17 09:00 Future Hold (Christophalta ) 60 mg DAILY PO 09/27/17 09:00 (Glucophage) 500 mg BIDPC PO 09/27/17 09:00 (Desyrel) 150 mg HS PO 09/27/17 21:00 (Wellbutrin Sr) 300 mg DAILY PO 09/27/17 09:00 (Cozaar) 50 mg DAILY PO 09/27/17 09:00 Patient's Strengths (min. 2) In a monitored setting. Verbally fluent. Physical Exam Physical exam completed by ED provider. On my examination today, the patient appears to be in no acute physical distress. No motor abnormalities noted. I do note that she has some disconjugate gaze, and nursing staff familiar with her from previous admission report that this is chronic. Labs and vitals reviewed: Vital Signs Vital Signs Date Time Temp Pulse Resp B/P (MAP) Pulse Ox O2 Delivery O2 Flow Rate FiO2 09/27/17 05:18 98.0 91 16 134/63 (86) 97 09/26/17 18:00 Room Air I/O 09/27/17 09/27/17 09/28/17 08:00 16:00 00:00 Intake Total 0 ml Balance 0 ml Lab Results Test 09/26/17 19:37 09/26/17 20:35 Urine Color YELLOW Urine Turbidity HAZY Urine pH 5.5 Urine Specific [place] 1.016 Urine Protein NEG mg/dL Urine Glucose (UA) NEG mg/dL Urine Ketones NEG mg/dL Urine Occult Blood NEG Urine Nitrite NEG Urine Bilirubin NEG Urine Urobilinogen LESS THAN 2.0 MG/DL Urine Leukocyte Esterase NEG Urine RBC 3 /hpf Urine WBC 1 /hpf Urine Squamous Epithelial Cells 9 /hpf Urine Bacteria RARE /hpf Microscopic Urinalysis Comment CULT NOT INDICATED Urine Opiates Screen POS Urine Barbiturates Screen NEG Urine Amphetamines Screen NEG Urine Benzodiazepines Screen NEG Urine Cocaine Screen NEG Urine Cannabinoids Screen NEG White Blood Count 12.5 TH/MM3 Red Blood Count 5.17 MIL/MM3 Hemoglobin 14.6 GM/DL Hematocrit 42.6 % Mean Corpuscular Volume 82.4 FL Mean Corpuscular Hemoglobin 28.3 PG Mean Corpuscular Hemoglobin Concent 34.3 % Red Cell Distribution Width 15.3 % Platelet Count 233 TH/MM3 Mean Platelet Volume 7.9 FL Neutrophils (%) (Auto) 63.5 % Lymphocytes (%) (Auto) 28.5 % Monocytes (%) (Auto) 5.9 % Eosinophils (%) (Auto) 1.7 % Basophils (%) (Auto) 0.4 % Neutrophils # (Auto) 7.9 TH/MM3 Lymphocytes # (Auto) 3.6 TH/MM3 Monocytes # (Auto) 0.7 TH/MM3 Eosinophils # (Auto) 0.2 TH/MM3 Basophils # (Auto) 0.1 TH/MM3 CBC Comment DIFF FINAL Differential Comment Blood Urea Nitrogen 19 MG/DL Creatinine 1.37 MG/DL Random Glucose 46 MG/DL Total Protein 8.2 GM/DL Albumin 3.9 GM/DL Calcium Level 10.3 MG/DL Alkaline Phosphatase 57 U/L Aspartate Amino Transf (AST/SGOT) 23 U/L Alanine Aminotransferase (ALT/SGPT) 27 U/L Total Bilirubin 0.6 MG/DL Sodium Level 141 MEQ/L Potassium Level 3.6 MEQ/L Chloride Level 105 MEQ/L Carbon Dioxide Level 21.6 MEQ/L Anion Gap 14 MEQ/L Estimat Glomerular Filtration Rate 38 ML/MIN Thyroid Stimulating Hormone 3rd Gen 1.220 uIU/ML Salicylates Level LESS THAN 1.7 MG/DL Acetaminophen Level LESS THAN 2.0 MCG/ML Ethyl Alcohol Level LESS THAN 3 MG/DL Mental Status Examination Appearance: Disheveled (Mild) Consciousness: Alert Orientation: Person, Place (At least) Motor Activity: Other (No motor abnormalities noted) Speech: Unremarkable Language: Adequate Fund of Knowledge: Adequate Attention and Concentration: Adequate Memory: Unremarkable (Grossly intact on clinical exam) Mood: Other (Depressed) Affect: Appropriate, Euthymic, Other (Somewhat inappropriate to the circumstance, see above) Thought Process & Associations: Intact, Logical, Linear Thought Content: Appropriate Hallucination Type: None Delusion Type: None Suicidal Ideation: Yes Suicidal Plan: No Suicidal Intention: No Homicidal Ideation: No Homicidal Plan: No Homicidal Intention: No Insight: Fair Judgment: Impulsive Assessment & Plan Problem List: (1) Dysthymic disorder ICD Codes: F34.1 - Dysthymic disorder Assessment & Plan 71-year-old female with psychiatric history as detailed above who presents under Jasso act. Patient describes a history of chronic depression, and I agree that dysthymic disorder is likely the most apt diagnosis. It is possible that there is some presently occult acute stressor that is leading to her presentation today. The patient also seems to have some personality disorder characteristics that may be either exacerbated by her mood state or contributing to it. She was previously stabilized on Remeron but discontinued this medication. I will plan to admit the patient to the inpatient psychiatric unit for safety, observation and stabilization. Admit inpatient. Voluntary status. Resume Remeron at a dose of 15 mg at bedtime given period of medication nonadherence with plans to titrate to effect. Atarax as needed for anxiety. R/B/A for medications discussed with patient. check BMP, CBC, lipid panel and HgbA1c in morning. Consult to the hospitalist. Defer further management of general medical medications to the hospitalist. PT eval. Fall precautions. OT eval. Vitals every shift. Counselor to see. Collateral information. Disposition planning. Estimated length of stay: 7-9 days. Discharge Planning Pending psychiatric stabilization Request HC Surrog/Guard Advoc?: No Huey Veras MD Sep 27, 2017 11:21
[2017-09-27] MEDS ORDERED: NICOTINE 21 MG/24 HR PATCH T-DERMAL PRN (13:45)
[2017-09-27 18:22] VITALS: BP 121/87; PULSE 90; RESP 19; TEMP 98.6; O2SAT 98
[2017-09-27] MEDS ORDERED: GLUCAGON 1 MG/ML VIAL OTHER PRN (19:30)
[2017-09-27] MEDS ORDERED: DEXTROSE 50% IN WATER 50 ML VIAL(D50) IV PUSH PRN (19:30)
--- NOTE | 2017-09-27 19:36 | PD.CONS ---
[facility] By Dr Schilling Primary Care Physician Unknown Diagnoses: History of Present Illness This is a 71-year-old female with past medical history as stated below who presents to the emergency room for evaluation. As per ED records the patient was Jasso acted by police after apparently she made suicidal threats. The patient had been admitted previously in June for similar complaints. The patient denied suicidal ideation upon interrogation by ED physician. Review of Systems As per HPI, other systems reviewed by me and negative. Past Family Social History Allergies: Coded Allergies: No Known Allergies (Unverified , 07/03/17) Past Medical History Hypertension Diabetes mellitus type 2 Multiple sclerosis Hyperlipidemia Dementia Past Surgical History Tonsillectomy Back surgery Reported Medications Reported Meds & Active Scripts Active Metformin (Metformin HCl) 500 Mg Tab 500 Mg PO BIDPC Cymbalta DR (Duloxetine HCl) 60 Mg Capdr 60 Mg PO DAILY Aspirin 81 Mg Chew 81 Mg CHEW DAILY Glipizide 10 Mg Tab 20 Mg PO BIDAC Take 30 minutes before a meal Copaxone Inj (Glatiramer Inj) 40 Mg/Ml Syr 40 Mg SQ 3XWEEK Use 3 times/week at least 48 hrs apart Reported Bupropion HCl ER 24 HR (Bupropion HCl) 300 Mg Tab 300 Mg PO DAILY Benicar (Olmesartan) 20 Mg Tab 20 Mg PO DAILY Trazodone (Trazodone HCl) 150 Mg Tablet 150 Mg PO HS Active Ordered Medications Current Medications Medications (Trade) Dose Ordered Sig/Ghassan Route Start Time Stop Time Status Last Admin (Tylenol) 650 mg Q4H PRN PO 09/27/17 00:15 (Milk Of Magnesia Liq) 30 ml DAILY PRN PO 09/27/17 00:15 (Mag-Al Plus Susp Liq) 30 ml Q6H PRN PO 09/27/17 00:15 Miscellaneous Information 1 HS T-DERMAL 09/27/17 21:00 (Aspirin Chew) 81 mg DAILY CHEW 09/27/17 09:00 09/27/17 09:00 (Glucotrol) 20 mg BIDAC PO 09/27/17 07:00 Patient Own Medication PT OWN MED: GLATIRA... MoWeFr@0900 SQ 09/28/17 09:00 Future Hold (Glucophage) 500 mg BIDPC PO 09/27/17 09:00 (Cozaar) 50 mg DAILY PO 09/27/17 09:00 09/27/17 09:00 (Remeron) 15 mg HS PO 09/27/17 21:00 (Atarax) 25 mg Q6H PRN PO 09/27/17 13:30 (Benadryl) 25 mg HS PRN PO 09/27/17 13:30 (Habitrol 21 Mg Patch.24 Hr) 1 patch DAILY PRN T-DERMAL 09/27/17 13:45 Family History Patient recalls no positive family history in her mother and father Social History Patient denies alcohol abuse Patient denies smoking Patient denies illicit drug abuse Physical Exam Vital Signs Vital Signs Date Time Temp Pulse Resp B/P (MAP) Pulse Ox O2 Delivery O2 Flow Rate FiO2 09/27/17 18:22 98.6 90 19 121/87 (98) 98 09/27/17 05:18 98.0 91 16 134/63 (86) 97 09/27/17 00:30 97.8 88 16 148/82 (104) 99 Physical Exam GENERAL: This is a well-nourished, well-developed patient, in no apparent distress. SKIN: No rashes, ecchymoses or lesions. Cool and dry. HEAD: Atraumatic. Normocephalic. No temporal or scalp tenderness. EYES: Pupils equal round and reactive. Extraocular motions intact. No scleral icterus. No injection or drainage. ENT: Nose without bleeding, purulent drainage or septal hematoma. Throat without erythema, tonsillar hypertrophy or exudate. Uvula midline. Airway patent. NECK: Trachea midline. No JVD or lymphadenopathy. Supple, nontender, no meningeal signs. CARDIOVASCULAR: Regular rate and rhythm without murmurs, gallops, or rubs. RESPIRATORY: Clear to auscultation. Breath sounds equal bilaterally. No wheezes , rales, or rhonchi. GASTROINTESTINAL: Abdomen soft, non-tender, nondistended. No hepato-splenomegaly , or palpable masses. No guarding. MUSCULOSKELETAL: Extremities without clubbing, cyanosis, or edema. No joint tenderness, effusion, or edema noted. No calf tenderness. Negative Homans sign bilaterally. NEUROLOGICAL: Awake and alert. Cranial nerves II through XII intact. Motor and sensory grossly within normal limits. Five out of 5 muscle strength in all muscle groups. Normal speech. Laboratory Laboratory Tests Test 09/26/17 19:37 09/26/17 20:35 Urine Color YELLOW Urine Turbidity HAZY Urine pH 5.5 Urine Specific [place] 1.016 Urine Protein NEG Urine Glucose (UA) NEG Urine Ketones NEG Urine Occult Blood NEG Urine Nitrite NEG Urine Bilirubin NEG Urine Urobilinogen LESS THAN 2.0 Urine Leukocyte Esterase NEG Urine RBC 3 Urine WBC 1 Urine Squamous Epithelial Cells 9 Urine Bacteria RARE Microscopic Urinalysis Comment CULT NOT INDICATED Urine Opiates Screen POS Urine Barbiturates Screen NEG Urine Amphetamines Screen NEG Urine Benzodiazepines Screen NEG Urine Cocaine Screen NEG Urine Cannabinoids Screen NEG White Blood Count 12.5 Red Blood Count 5.17 Hemoglobin 14.6 Hematocrit 42.6 Mean Corpuscular Volume 82.4 Mean Corpuscular Hemoglobin 28.3 Mean Corpuscular Hemoglobin Concent 34.3 Red Cell Distribution Width 15.3 Platelet Count 233 Mean Platelet Volume 7.9 Neutrophils (%) (Auto) 63.5 Lymphocytes (%) (Auto) 28.5 Monocytes (%) (Auto) 5.9 Eosinophils (%) (Auto) 1.7 Basophils (%) (Auto) 0.4 Neutrophils # (Auto) 7.9 Lymphocytes # (Auto) 3.6 Monocytes # (Auto) 0.7 Eosinophils # (Auto) 0.2 Basophils # (Auto) 0.1 CBC Comment DIFF FINAL Differential Comment Blood Urea Nitrogen 19 Creatinine 1.37 Random Glucose 46 Total Protein 8.2 Albumin 3.9 Calcium Level 10.3 Alkaline Phosphatase 57 Aspartate Amino Transf (AST/SGOT) 23 Alanine Aminotransferase (ALT/SGPT) 27 Total Bilirubin 0.6 Sodium Level 141 Potassium Level 3.6 Chloride Level 105 Carbon Dioxide Level 21.6 Anion Gap 14 Estimat Glomerular Filtration Rate 38 Thyroid Stimulating Hormone 3rd Gen 1.220 Salicylates Level LESS THAN 1.7 Acetaminophen Level LESS THAN 2.0 Ethyl Alcohol Level LESS THAN 3 Result Diagram: 09/26/17203409/26/172034 Assessment and Plan Problem List: (1) Dysthymic disorder ICD Code: F34.1 - Dysthymic disorder Plan: Management as per psychiatry. (2) Hyperlipidemia ICD Code: E78.5 - Hyperlipidemia, unspecified Plan: Patient on the statin. (3) Diabetes ICD Code: E11.9 - Type 2 diabetes mellitus without complications Plan: Continue glipizide and metformin. Placed on SSI with insulin NovoLog and monitor Accu-Cheks. Last hemoglobin A1c was 6.6. Diabetes is well controlled. (4) Multiple sclerosis ICD Code: G35 - Multiple sclerosis Plan: Seems to be stable. Resume patient's home medication. The patient is on Copaxone. (5) BECKY (acute kidney injury) ICD Code: N17.9 - Acute kidney failure, unspecified Status: Acute Plan: Suspect patient has CKD stage III. Creatinine elevated at 1.5 on previous admission on June. Check kidney ultrasound, check urinalysis. Check urine lites. Problem Qualifiers (1) Hyperlipidemia: Qualified Codes: E78.5 - Hyperlipidemia, unspecified (2) Diabetes: Ciro Becker MD Sep 27, 2017 19:36
[2017-09-27] MEDS: INSULIN ASPART SUPPLEMENTAL SCALE SQ SCH (20:06)
[2017-09-27] MEDS: REMOVE OLD NICOTINE PATCH T-DERMAL SCH (20:40)
[2017-09-27] MEDS: hydrOXYzine HCL 50 MG TAB PO PRN (20:40)
[2017-09-27] MEDS: MIRTAZAPINE 15 MG TAB PO SCH (20:40)
[2017-09-27] MEDS ORDERED: traZODone HCL 50 MG TAB PO SCH (21:00)
[2017-09-28 06:08] VITALS: BP 131/63; PULSE 82; RESP 16; TEMP 98.7; O2SAT 97
[2017-09-28] MEDS: glipiZIDE 10 MG TAB PO SCH ×3 (07:00→16:00)
[2017-09-28] MEDS: INSULIN ASPART SUPPLEMENTAL SCALE SQ SCH ×4 (07:07→21:00)
[2017-09-28 08:26] LABS: AUTOMATED NEUTROPHIL # 4.9 TH/MM3 (1.8-7.7); BASOPHIL % 0.5 % (0.0-2.0); EOSINOPHIL # 0.3 TH/MM3 (0-0.4); EOSINOPHIL % 2.8 % (0.0-4.0); HEMATOCRIT 41.4 % (35.0-46.0); HEMOGLOBIN 14.4 GM/DL (11.6-15.3); LYMPH % 35.6 % (9.0-44.0); LYMPHOCYTE # 3.2 TH/MM3 (1.0-4.8); MEAN CELL VOLUME 82.7 FL (80.0-100.0); MEAN CORPUSCULAR HEMOGLOBIN 28.7 PG (27.0-34.0); MEAN CORPUSCULAR HGB CONC 34.7 % (32.0-36.0); MONO % 7.5 % (0.0-8.0); MONOCYTE # 0.7 TH/MM3 (0-0.9); NEUT % 53.6 % (16.0-70.0); PLATELET COUNT 231 TH/MM3 (150-450); RED BLOOD COUNT 5.01 MIL/MM3 (4.00-5.30); RED CELL DISTRIBUTION WIDTH 15.4 % (11.6-17.2); WHITE BLOOD COUNT 9.1 TH/MM3 (4.0-11.0)
[2017-09-28 08:58] LABS: BICARBONATE 24.7 MEQ/L (21.0-32.0); BLOOD UREA NITROGEN 22 MG/DL (7-18); CALCIUM 9.9 MG/DL (8.5-10.1); CHLORIDE 110 MEQ/L (98-107); CREATININE 1.42 MG/DL (0.50-1.00); GLOMERULAR FILTRATION RATE 36 ML/MIN (>89); GLUCOSE,RANDOM 144 MG/DL (74-106); SODIUM (NA) 143 MEQ/L (136-145)
[2017-09-28 08:59] LABS: CHOLESTEROL 123 MG/DL (120-200)
[2017-09-28] MEDS ORDERED: GLATIRAMER 40 MG/ML SQ SCH (09:00)
[2017-09-28] MEDS: metFORMIN HCL 500 MG TAB PO SCH ×4 (09:00→17:35)
[2017-09-28] MEDS ORDERED: LOSARTAN 50 MG TAB PO SCH (09:00)
[2017-09-28] MEDS: LOSARTAN 50 MG TAB PO SCH (09:00)
[2017-09-28] MEDS: ASPIRIN 81 MG CHEW TAB CHEW SCH ×2 (09:00→09:06)
[2017-09-28 09:01] LABS: CHOLESTEROL/ HDL RATIO 2.67 RATIO; LDL CHOLESTEROL 24 MG/DL (0-99); TRIGLYCERIDES 265 MG/DL (42-150)
--- NOTE | 2017-09-28 10:35 | RADRPT ---
EXAM DATE/TIME: 09/28/2017 09:44 [facility] COMPARISON: No previous studies available for comparison. INDICATIONS : Increased BUN and creatinine. MEDICAL HISTORY : Hypertension. Chronic back pain. SURGICAL HISTORY : Hysterectomy. ENCOUNTER: Initial ACUITY: 1 day PAIN SCORE: 0/10 LOCATION: Bilateral flank MEASUREMENTS: RIGHT KIDNEY: 10.2 x 4.4 x 5.2 cm LEFT KIDNEY: 11.0 x 4.4 x 4.9 cm FINDINGS: There is cortical thinning and increased echogenicity bilaterally suggesting medical renal disease. M ultiple bilateral renal cysts are noted. On the right there is a 2.3 x 2.3 x 1.9 cm lower pole cyst a s well as a 1.1 x 1.2 x 0.9 cm mid pole cyst. On the left there is a 3.9 x 3.3 x 3.[address], 3.8 x 3.8 x 3.4 cm mid pole cyst and 1.9 x 1.5 x 1.6 cm lower pole cyst. No solid renal mass is n oted. No hydronephrosis is noted the urinary bladder is unremarkable. CONCLUSION: 1. Bilateral cortical thinning and increased echogenicity suggesting medical renal disease. 2. Multiple bilateral renal cysts. Sam Ventura MD on September 28, 2017 at 10:29 Board Certified Radiologist. This report was verified electronically.
--- NOTE | 2017-09-28 11:04 | HHI.PYPN ---
Subjective Chief Complaint: Depression, SI Remarks Patient seen and examined with nurse. Chart reviewed. Case discussed with nursing staff. No behavioral issues noted overnight. On my exam, patient is needy and attention seeking. She is fixated on pain in her hands and feet, and I have asked the nurse to have the hospitalist follow up on this complaint. She remains depressed although she does not articulate any SI. Seems somewhat forgetful and repeats material in the interview. No side effects from medications. No physical complaints. Somewhat intrusive following the interview as I am trying to round on other patients on the unit. Becomes irate that I will not make her the sole focus of my attention. Histrionic traits noted. Review of Systems ROS Limitations: Poor Historian Except as stated in HPI: all other systems reviewed are Neg Mental Status Examination Appearance: Other (Fair grooming) Consciousness: Alert Orientation: Person, Place (At least) Motor Activity: Other (No abnormal motor movements noted) Speech: Unremarkable Language: Adequate Fund of Knowledge: Adequate Attention and Concentration: Adequate Memory: Unremarkable (Grossly intact on clinical exam) Mood: Other (Remains depressed) Affect: Irritable, Other (Dysphoric) Thought Process & Associations: Circumstantial Thought Content: Other (Perseverative) Hallucination Type: None Delusion Type: None Suicidal Ideation: No Suicidal Plan: No Suicidal Intention: No Homicidal Ideation: No Homicidal Plan: No Homicidal Intention: No Insight: Fair Judgment: Impulsive Results Labs Test 09/28/17 07:57 White Blood Count 9.1 TH/MM3 Red Blood Count 5.01 MIL/MM3 Hemoglobin 14.4 GM/DL Hematocrit 41.4 % Mean Corpuscular Volume 82.7 FL Mean Corpuscular Hemoglobin 28.7 PG Mean Corpuscular Hemoglobin Concent 34.7 % Red Cell Distribution Width 15.4 % Platelet Count 231 TH/MM3 Mean Platelet Volume 8.0 FL Neutrophils (%) (Auto) 53.6 % Lymphocytes (%) (Auto) 35.6 % Monocytes (%) (Auto) 7.5 % Eosinophils (%) (Auto) 2.8 % Basophils (%) (Auto) 0.5 % Neutrophils # (Auto) 4.9 TH/MM3 Lymphocytes # (Auto) 3.2 TH/MM3 Monocytes # (Auto) 0.7 TH/MM3 Eosinophils # (Auto) 0.3 TH/MM3 Basophils # (Auto) 0.0 TH/MM3 CBC Comment DIFF FINAL Differential Comment Blood Urea Nitrogen 22 MG/DL Creatinine 1.42 MG/DL Random Glucose 144 MG/DL Calcium Level 9.9 MG/DL Sodium Level 143 MEQ/L Potassium Level 3.7 MEQ/L Chloride Level 110 MEQ/L Carbon Dioxide Level 24.7 MEQ/L Anion Gap 8 MEQ/L Estimat Glomerular Filtration Rate 36 ML/MIN Triglycerides Level 265 MG/DL Cholesterol Level 123 MG/DL LDL Cholesterol 24 MG/DL HDL Cholesterol 46.0 MG/DL Cholesterol/HDL Ratio 2.67 RATIO Leukocytosis resolved. Renal function stable. Vitals/IOs Vital Signs Date Time Temp Pulse Resp B/P (MAP) Pulse Ox O2 Delivery O2 Flow Rate FiO2 09/28/17 06:08 98.7 82 16 131/63 (85) 97 09/26/17 18:00 Room Air Intake and Output 09/28/17 09/28/17 09/29/17 08:00 16:00 00:00 Intake Total 0 ml Balance 0 ml Assessment & Plan Problem List: (1) Dysthymic disorder ICD Codes: F34.1 - Dysthymic disorder Assessment & Plan Personality disorder features becoming more prominent. Continue Remeron as ordered. Could consider titrating over the weekend. To consider neuropsychological evaluation. Hospitalist input noted and appreciated. Continue to monitor on the inpatient unit. Continue other care as ordered. Justification for Cont. Inpt. Monitoring for impairment in safety, none noted Discharge Planning Pending stabilization Request HC Surrog/Guard Advoc?: No Huey Veras MD Sep 28, 2017 11:04
--- NOTE | 2017-09-28 15:44 | HHI.PR ---
Subjective Remarks Follow-up for acute renal failure No overnight events, discussed with nursing. ABGs were low, in the 60s, metformin was held. Complaining of generalized pain especially both hands and feet, chronic. Objective Vitals Vital Signs Date Time Temp Pulse Resp B/P (MAP) Pulse Ox O2 Delivery O2 Flow Rate FiO2 09/28/17 06:08 98.7 82 16 131/63 (85) 97 09/27/17 18:22 98.6 90 19 121/87 (98) 98 I/O 09/27/17 09/27/17 09/27/17 09/28/17 09/28/17 09/28/17 07:00 15:00 23:00 07:00 15:00 23:00 Intake Total 0 ml 360 ml 0 ml 360 ml Balance 0 ml 360 ml 0 ml 360 ml Intake Oral 0 ml 360 ml 0 ml 360 ml # Voids 0 1 Result Diagram: 09/28/17 0757 09/28/17 0757 Objective Remarks Not in distress Regular rate and rhythm Clear breath sounds Ambulating with a walker. A/P Problem List: (1) Dysthymic disorder ICD Code: F34.1 - Dysthymic disorder (2) Hyperlipidemia ICD Code: E78.5 - Hyperlipidemia, unspecified (3) Diabetes ICD Code: E11.9 - Type 2 diabetes mellitus without complications (4) Multiple sclerosis ICD Code: G35 - Multiple sclerosis (5) BECKY (acute kidney injury) ICD Code: N17.9 - Acute kidney failure, unspecified Status: Acute Assessment and Plan Problem List: (1) Dysthymic disorder ICD Code: F34.1 - Dysthymic disorder Plan: Management as per psychiatry. (2) Hyperlipidemia ICD Code: E78.5 - Hyperlipidemia, unspecified Plan: Continue statins (3) Diabetes ICD Code: E11.9 - Type 2 diabetes mellitus without complications Plan: BG's were low in the 60s, asymptomatic, continue metformin, hold glipizide . Placed on SSI with insulin NovoLog and monitor Accu-Cheks. Last hemoglobin A1c was 6.6. Diabetes is well controlled. (4) Multiple sclerosis ICD Code: G35 - Multiple sclerosis Plan: Seems to be stable. Resume patient's home medication. The patient is on Copaxone. (5) BECKY (acute kidney injury) ICD Code: N17.9 - Acute kidney failure, unspecified Status: Acute Plan: Suspect patient has CKD stage III. Ultrasound showed medical renal disease, urinalysis unremarkable, no proteinuria. Problem Qualifiers (1) Hyperlipidemia: Qualified Codes: E78.5 - Hyperlipidemia, unspecified (2) Diabetes: Seth Tobin MD Sep 28, 2017 15:44
[2017-09-28 15:55] LABS: HEMOGLOBIN A1C 5.7 % (4.3-6.0)
[2017-09-28] MEDS: hydrOXYzine HCL 50 MG TAB PO PRN ×2 (17:43→23:09)
[2017-09-28 18:00] VITALS: BP 131/61; PULSE 94; RESP 15; TEMP 98.1; O2SAT 100
[2017-09-28] MEDS: ALUMINUM/MAGNESIUM/SIMETH 30 ML CUP PO PRN (18:25)
[2017-09-28] MEDS: diphenhydrAMINE HCL 25 MG CAP PO PRN (20:15)
[2017-09-28] MEDS: MIRTAZAPINE 15 MG TAB PO SCH (20:15)
[2017-09-28] MEDS: REMOVE OLD NICOTINE PATCH T-DERMAL SCH (21:00)
[2017-09-29 06:04] VITALS: BP 141/65; PULSE 79; RESP 15; TEMP 98.6; O2SAT 96
[2017-09-29] MEDS: INSULIN ASPART SUPPLEMENTAL SCALE SQ SCH ×4 (06:24→21:00)
--- NOTE | 2017-09-29 08:01 | PD.TTN ---
Patient Problems 1. Discharge planning 2. Medication compliance 3. Knowledge deficit 4. Lack of coping skills Progress Toward Goals Provider Present: Dr. Claudia Veras Provider Input: 09/28/17 patient presents with Dysthymic Disorder , discussed / offered ECT, there are some personality components, will remain for med adjustment/stabilization Psychiatric Counselors Present: Marya Beverly LCSW Psych Therapist Input: 09/28/17 new to this counselor Group Spec/RT/OT/ALEXANDER Present: Cliff Lara OT Group Spec/RT/OT/ALEXANDER Input: 09/28/17 OT eval pending, pt does not attend groups so far Marya Beverly LCSW Sep 29, 2017 08:01
[2017-09-29] MEDS: glipiZIDE 10 MG TAB PO SCH ×2 (08:30→16:00)
[2017-09-29] MEDS: LOSARTAN 50 MG TAB PO SCH (08:30)
[2017-09-29] MEDS: ASPIRIN 81 MG CHEW TAB CHEW SCH ×2 (08:36→08:57)
[2017-09-29] MEDS: metFORMIN HCL 500 MG TAB PO SCH ×3 (08:37→16:59)
--- NOTE | 2017-09-29 09:01 | HHI.PYPN ---
Subjective Chief Complaint: Depression, SI Remarks Chart reviewed. Discussed patient with nurse. Staff reports that patient is compliant with medications. Patient sitting in common area having a conversation with another patient. She continues to complain about pain in hands and feet which is chronic pain. States she slept well and ate all of her breakfast. Mental Status Examination Appearance: Other (Fair grooming) Consciousness: Alert Orientation: Person, Place (At least) Motor Activity: Other (No abnormal motor movements noted) Speech: Unremarkable Language: Adequate Fund of Knowledge: Adequate Attention and Concentration: Adequate Memory: Unremarkable (Grossly intact on clinical exam) Mood: Other (Remains depressed) Affect: Irritable, Other (Dysphoric) Thought Process & Associations: Circumstantial Thought Content: Other (Perseverative) Hallucination Type: None Delusion Type: None Suicidal Ideation: No Suicidal Plan: No Suicidal Intention: No Homicidal Ideation: No Homicidal Plan: No Homicidal Intention: No Insight: Fair Judgment: Impulsive Results Vitals/IOs Vital Signs Date Time Temp Pulse Resp B/P (MAP) Pulse Ox O2 Delivery O2 Flow Rate FiO2 09/29/17 06:04 98.6 79 15 141/65 (90) 96 09/26/17 18:00 Room Air Intake and Output 09/29/17 09/29/17 09/30/17 08:00 16:00 00:00 Intake Total 0 ml Balance 0 ml Assessment & Plan Problem List: (1) Dysthymic disorder ICD Codes: F34.1 - Dysthymic disorder Assessment & Plan Will continue with current treatment. Discharge plan in progress. Justification for Cont. Inpt. Moving patient to a lower level of care may result in decompensation. Request HC Surrog/Guard Advoc?: Lizette Becerra Sep 29, 2017 09:01
--- NOTE | 2017-09-29 13:05 | HHI.PR ---
Subjective Remarks Follow-up visit for acute renal failure, hypoglycemia, and diabetes. Patient is seen and examined in the day room today in no acute distress. She reports that she is doing well with no acute concerns. Denies any fevers, chills, nausea, vomiting, diarrhea, headaches, dizziness, lightheadedness, cough, shortness of breath or chest pain. Spoke with nurse who does not report any acute concerns today, blood sugar stable. Objective Vitals Vital Signs Date Time Temp Pulse Resp B/P (MAP) Pulse Ox O2 Delivery O2 Flow Rate FiO2 09/29/17 06:04 98.6 79 15 141/65 (90) 96 09/28/17 18:00 98.1 94 15 131/61 (84) 100 I/O 09/28/17 09/28/17 09/28/17 09/29/17 09/29/17 09/29/17 07:00 15:00 23:00 07:00 15:00 23:00 Intake Total 0 ml 720 ml 1680 ml 240 ml Balance 0 ml 720 ml 1680 ml 240 ml Intake Oral 0 ml 720 ml 1680 ml 240 ml # Voids 1 1 2 Result Diagram: 09/28/17 0757 09/28/17 0757 Imaging Last Impressions Renal Ultrasound 09/28/17 0000 Signed Impressions: Service Date/Time: Thursday, September 28, 2017 09:44 - CONCLUSION: 1. Bilateral cortical thinning and increased echogenicity suggesting medical renal disease. 2. Multiple bilateral renal cysts. Sam Ventura MD Objective Remarks GENERAL: Obese female in no acute distress. SKIN: Cool and dry. HEAD: Atraumatic. Normocephalic. EYES: Pupils equal round and reactive. No scleral icterus. No injection or drainage. ENT: Nose without bleeding, purulent. Airway patent. NECK: Trachea midline. CARDIOVASCULAR: Regular rate and rhythm without murmurs, gallops, or rubs. RESPIRATORY: Clear to auscultation. Breath sounds equal bilaterally. No wheezes , rales, or rhonchi. GASTROINTESTINAL: Abdomen soft, non-tender, nondistended. MUSCULOSKELETAL: Extremities without clubbing, cyanosis, or edema. No joint tenderness, effusion, or edema noted. NEUROLOGICAL: Awake and alert. Motor and sensory grossly within normal limits. Normal speech. A/P Problem List: (1) Dysthymic disorder ICD Code: F34.1 - Dysthymic disorder (2) Hyperlipidemia ICD Code: E78.5 - Hyperlipidemia, unspecified (3) Diabetes ICD Code: E11.9 - Type 2 diabetes mellitus without complications (4) Multiple sclerosis ICD Code: G35 - Multiple sclerosis (5) BECKY (acute kidney injury) ICD Code: N17.9 - Acute kidney failure, unspecified Status: Acute Assessment and Plan 71-year-old female with past medical history of HTN, DM, MS, HLD, and dementia admitted to inpatient psychiatry under Jasso act after making suicidal statements. [facility] consulted to assist with ongoing medical management. Dysthymic disorder -Treatment plan per psychiatry, greatly appreciated Hypertension, controlled -Blood pressure this morning slightly elevated with systolic 141, previously was stable -Continue Cozaar 50 mg daily, continue trending vitals and adjusting medications accordingly Diabetes mellitus type 2, well-controlled Hypoglycemic episode -Hemoglobin A1c 5.7 -Continue 1800 ADA diet, glipizide 20 mg twice daily, hold metformin secondary to BECKY -Accu-Cheks with insulin sliding scale, blood sugar this morning 112 and around noon 147. No hypoglycemia reported -Continue trending and adjusting medications accordingly BECKY on CKD III -Renal ultrasound reviewed, bilateral cortical thinning and increased echogenicity suggesting medical renal disease, multiple bilateral renal cysts. -UA with no proteinuria -Labs from yesterday reviewed, slight increase in BUN, encourage p.o. fluids , Gatorade with meals -Check renal function on Sunday for improvement Multiple sclerosis, stable -Continue patient's home Copaxone DVT prophylaxis-ambulation Discussed with patient and nurse. Problem Qualifiers (1) Hyperlipidemia: Qualified Codes: E78.5 - Hyperlipidemia, unspecified (2) Diabetes: Lauren Boles Sep 29, 2017 13:05
[2017-09-29] MEDS: hydrOXYzine HCL 50 MG TAB PO PRN ×2 (14:26→22:51)
[2017-09-29] MEDS: ALUMINUM/MAGNESIUM/SIMETH 30 ML CUP PO PRN (16:06)
[2017-09-29 17:00] VITALS: BP 137/69; PULSE 82; RESP 15; TEMP 98.7; O2SAT 100
[2017-09-29] MEDS: diphenhydrAMINE HCL 25 MG CAP PO PRN (20:11)
[2017-09-29] MEDS: MIRTAZAPINE 15 MG TAB PO SCH (20:11)
[2017-09-29] MEDS: REMOVE OLD NICOTINE PATCH T-DERMAL SCH (21:00)
[2017-09-30 06:11] VITALS: BP 129/62; PULSE 77; RESP 16; TEMP 98.3; O2SAT 99
[2017-09-30] MEDS: INSULIN ASPART SUPPLEMENTAL SCALE SQ SCH ×4 (08:00→20:25)
[2017-09-30] MEDS: LOSARTAN 50 MG TAB PO SCH (08:15)
[2017-09-30] MEDS: glipiZIDE 10 MG TAB PO SCH ×2 (08:15→16:15)
[2017-09-30] MEDS: ALUMINUM/MAGNESIUM/SIMETH 30 ML CUP PO PRN (08:15)
[2017-09-30] MEDS: hydrOXYzine HCL 50 MG TAB PO PRN (08:16)
[2017-09-30] MEDS: ASPIRIN 81 MG CHEW TAB CHEW SCH ×2 (08:17→08:19)
[2017-09-30] MEDS: metFORMIN HCL 500 MG TAB PO SCH ×2 (08:19→16:22)
--- NOTE | 2017-09-30 14:12 | HHI.PYPN ---
Subjective Chief Complaint: Depression, SI Remarks Reviewed electronic medical record discussed case with staff. Nurse reports the patient has been more interactive with other patients out in the milieu. Patient reports that she did not sleep well however, she admits that she typically does not sleep well. She reports that her appetite has been good however she too does not like the food. Patient's mood is good her affect is euthymic. She requests to have help removing the hairs from her chin. Mental Status Examination Appearance: Other (Fair grooming) Consciousness: Alert Orientation: Person, Place (At least) Motor Activity: Other (No abnormal motor movements noted) Speech: Unremarkable Language: Adequate Fund of Knowledge: Adequate Attention and Concentration: Adequate Memory: Unremarkable (Grossly intact on clinical exam) Mood: Other (Remains depressed) Affect: Irritable, Other (Dysphoric) Thought Process & Associations: Circumstantial Thought Content: Other (Perseverative) Hallucination Type: None Delusion Type: None Suicidal Ideation: No Suicidal Plan: No Suicidal Intention: No Homicidal Ideation: No Homicidal Plan: No Homicidal Intention: No Insight: Fair Judgment: Impulsive Results Vitals/IOs Vital Signs Date Time Temp Pulse Resp B/P (MAP) Pulse Ox O2 Delivery O2 Flow Rate FiO2 09/30/17 06:11 98.3 77 16 129/62 (84) 99 09/26/17 18:00 Room Air Assessment & Plan Problem List: (1) Dysthymic disorder ICD Codes: F34.1 - Dysthymic disorder Assessment & Plan Estimated LOS: Continue with treatment plan as ordered. Attending psychiatrist will reevaluate tomorrow. Days Justification for Cont. Inpt. Moving this patient to a lower level of care would result in decompensation. Request HC Surrog/Guard Advoc?: No Yuridia Ramirez Sep 30, 2017 14:12
--- NOTE | 2017-09-30 15:09 | HHI.PR ---
Subjective Remarks Follow-up visit for acute renal failure, hypoglycemia, and diabetes. Patient seen and examined sitting at table eating lunch. Patient complains of intermittent abdominal pain. States the Mylanta is not working, she usually takes Pepto-Bismol with good results for abdominal pain. Patient does admit to 1 bowel movement today. Eating well, denies any nausea or vomiting. Denies any fevers, chills, diarrhea, headaches, dizziness, lightheadedness, cough, shortness of breath or chest pain. Objective Vitals Vital Signs Date Time Temp Pulse Resp B/P (MAP) Pulse Ox O2 Delivery O2 Flow Rate FiO2 09/30/17 06:11 98.3 77 16 129/62 (84) 99 09/29/17 17:00 98.7 82 15 137/69 (91) 100 I/O 09/29/17 09/29/17 09/29/17 09/30/17 09/30/17 09/30/17 07:00 15:00 23:00 07:00 15:00 23:00 Intake Total 480 ml 240 ml Balance 480 ml 240 ml Intake Oral 240 ml 240 ml Oral Supplement 240 ml # Voids 2 Result Diagram: 09/28/17 0757 09/28/17 0757 Imaging Last Impressions Renal Ultrasound 09/28/17 0000 Signed Impressions: Service Date/Time: Thursday, September 28, 2017 09:44 - CONCLUSION: 1. Bilateral cortical thinning and increased echogenicity suggesting medical renal disease. 2. Multiple bilateral renal cysts. Sam Ventura MD Objective Remarks GENERAL: Obese female in no acute distress. SKIN: Warm and dry. HEAD: Atraumatic. Normocephalic. EYES: Pupils equal round and reactive. No scleral icterus. No injection or drainage. ENT: Nose without bleeding, purulent. Airway patent. NECK: Trachea midline. CARDIOVASCULAR: Regular rate and rhythm without murmurs, gallops, or rubs. RESPIRATORY: Clear to auscultation. Breath sounds equal bilaterally. No wheezes , rales, or rhonchi. GASTROINTESTINAL: Abdomen soft, non-tender, nondistended. MUSCULOSKELETAL: Extremities without clubbing, cyanosis, or edema. No joint tenderness, effusion, or edema noted. NEUROLOGICAL: Awake and alert. Motor and sensory grossly within normal limits. Normal speech. A/P Problem List: (1) Dysthymic disorder ICD Code: F34.1 - Dysthymic disorder (2) Hyperlipidemia ICD Code: E78.5 - Hyperlipidemia, unspecified (3) Diabetes ICD Code: E11.9 - Type 2 diabetes mellitus without complications (4) Multiple sclerosis ICD Code: G35 - Multiple sclerosis (5) BECKY (acute kidney injury) ICD Code: N17.9 - Acute kidney failure, unspecified Status: Acute Assessment and Plan 71-year-old female with past medical history of HTN, DM, MS, HLD, and dementia admitted to inpatient psychiatry under Jasso act after making suicidal statements. [facility] consulted to assist with ongoing medical management. Dysthymic disorder -Treatment plan per psychiatry, greatly appreciated Hypertension, controlled -Blood pressure stable. -Continue Cozaar 50 mg daily, continue trending vitals and adjusting medications accordingly Diabetes mellitus type 2, well-controlled Hypoglycemic episode -Hemoglobin A1c 5.7 -Continue 1800 ADA diet, glipizide 20 mg twice daily, hold metformin secondary to BECKY. -Accu-Cheks ACHS, sliding scale, cover as needed. No hypoglycemia reported. -Continue trending and adjusting medications accordingly BECKY on CKD III -Renal ultrasound reviewed, bilateral cortical thinning and increased echogenicity suggesting medical renal disease, multiple bilateral renal cysts. -UA with no proteinuria -Slight increase in BUN, strongly encouraged p.o. fluids, Gatorade with meals. -Check renal function on Sunday for improvement. RN aware of importance of PO intake. Will continue to monitor. Multiple sclerosis, stable -Continue patient's home Copaxone DVT prophylaxis-ambulation Discussed with patient and nurse. Problem Qualifiers (1) Hyperlipidemia: Qualified Codes: E78.5 - Hyperlipidemia, unspecified (2) Diabetes: Josie Dong Sep 30, 2017 15:09
[2017-09-30] MEDS ORDERED: BISMUTH SUBSALICYLATE 240 ML BTL PO PRN (15:30)
[2017-09-30 18:09] VITALS: BP 139/75; PULSE 86; RESP 18; TEMP 97.1; O2SAT 98
[2017-09-30] MEDS: MIRTAZAPINE 15 MG TAB PO SCH (20:24)
[2017-09-30] MEDS: REMOVE OLD NICOTINE PATCH T-DERMAL SCH (20:25)
[2017-10-01 06:06] VITALS: BP 123/58; PULSE 80; RESP 18; TEMP 98.2; O2SAT 98
[2017-10-01] MEDS: glipiZIDE 10 MG TAB PO SCH ×2 (06:30→16:00)
[2017-10-01 07:33] LABS: BICARBONATE 24.6 MEQ/L (21.0-32.0); CALCIUM 9.6 MG/DL (8.5-10.1); CREATININE 1.34 MG/DL (0.50-1.00)
[2017-10-01] MEDS: ASPIRIN 81 MG CHEW TAB CHEW SCH ×2 (07:45→08:50)
[2017-10-01] MEDS: INSULIN ASPART SUPPLEMENTAL SCALE SQ SCH ×4 (07:45→20:53)
[2017-10-01] MEDS: LOSARTAN 50 MG TAB PO SCH (08:49)
[2017-10-01] MEDS: metFORMIN HCL 500 MG TAB PO SCH ×2 (08:49→17:39)
--- NOTE | 2017-10-01 12:14 | HHI.PR ---
Subjective Remarks Follow-up visit for acute renal failure, hypoglycemia, and diabetes. Patient is seen and examined in the day room eating, she repots that she is not getting enough to eat. No BM in 2 days, denies any abdominal pain or discomfort. She repots that she has not been eating enough to have a BM. Denies any fevers, chills, n/v/d, headache, dizziness, cough or SOB, Objective Vitals Vital Signs Date Time Temp Pulse Resp B/P (MAP) Pulse Ox O2 Delivery O2 Flow Rate FiO2 10/01/17 06:06 98.2 80 18 123/58 (79) 98 09/30/17 18:09 97.1 86 18 139/75 (96) 98 I/O 09/30/17 09/30/17 09/30/17 10/01/17 10/01/17 10/01/17 07:00 15:00 23:00 07:00 15:00 23:00 Intake Total 960 ml Balance 960 ml Intake Oral 960 ml # Voids 2 2 Result Diagram: 09/28/17 0757 10/01/17 0627 Imaging Last Impressions Renal Ultrasound 09/28/17 0000 Signed Impressions: Service Date/Time: Thursday, September 28, 2017 09:44 - CONCLUSION: 1. Bilateral cortical thinning and increased echogenicity suggesting medical renal disease. 2. Multiple bilateral renal cysts. Sam Ventura MD Objective Remarks GENERAL: Obese female in no acute distress. SKIN: Cool and dry. HEAD: Atraumatic. Normocephalic. EYES: Pupils equal round and reactive. No scleral icterus. No injection or drainage. ENT: Nose without bleeding, purulent. Airway patent. NECK: Trachea midline. CARDIOVASCULAR: Regular rate and rhythm without murmurs, gallops, or rubs. RESPIRATORY: Clear to auscultation. Breath sounds equal bilaterally. No wheezes , rales, or rhonchi. GASTROINTESTINAL: Abdomen soft, non-tender, nondistended. MUSCULOSKELETAL: Extremities without clubbing, cyanosis, or edema. No joint tenderness, effusion, or edema noted. NEUROLOGICAL: Awake and alert. Motor and sensory grossly within normal limits. Normal speech. A/P Problem List: (1) Dysthymic disorder ICD Code: F34.1 - Dysthymic disorder (2) Hyperlipidemia ICD Code: E78.5 - Hyperlipidemia, unspecified (3) Diabetes ICD Code: E11.9 - Type 2 diabetes mellitus without complications (4) Multiple sclerosis ICD Code: G35 - Multiple sclerosis (5) BECKY (acute kidney injury) ICD Code: N17.9 - Acute kidney failure, unspecified Status: Acute Assessment and Plan 71-year-old female with past medical history of HTN, DM, MS, HLD, and dementia admitted to inpatient psychiatry under Jasso act after making suicidal statements. [facility] consulted to assist with ongoing medical management. Dysthymic disorder -Treatment plan per psychiatry, greatly appreciated Hypertension, controlled -Blood pressure stable, continue Cozaar 50 mg daily, continue trending vitals and adjusting medications accordingly Diabetes mellitus type 2, well-controlled Hypoglycemic episode -Hemoglobin A1c 5.7 -Continue 1800 ADA diet, glipizide 20 mg twice daily, metformin 500mg BID ( GFR >30, max metformin 1,000mg daily, discussed with [facility] pharmacist) -Accu-Cheks ACHS with insulin sliding scale. No hypoglycemia reported -Continue trending and adjusting medications accordingly - Consult dietary for recommendations on food portions BECKY on CKD III -Renal ultrasound reviewed, bilateral cortical thinning and increased echogenicity suggesting medical renal disease, multiple bilateral renal cysts. -UA with no proteinuria -Improvement in creatinine, and increase in BUN. Continue to encourage p.o. fluids, Gatorade with meals -Monitor renal function periodically Multiple sclerosis, stable -Continue patient's home Copaxone DVT prophylaxis-ambulation Discussed with patient. Problem Qualifiers (1) Hyperlipidemia: Qualified Codes: E78.5 - Hyperlipidemia, unspecified (2) Diabetes: Lauren Boles Oct 01, 2017 12:14
[2017-10-01] MEDS: COPAXONE 40 MG/ML SQ SCH (14:00)
--- NOTE | 2017-10-01 14:03 | HHI.PYPN ---
Subjective Chief Complaint: Depression, SI Remarks Patient seen and examined with nurse. Chart reviewed. Case discussed with nursing staff. Nursing has noted that patient is fairly forgetful, for example not remembering that she is on medications for depression and forgetting that she has seen a physician. On my exam, patient remains a little needy and attention seeking. Mood remains depressed, and patient is pessimistic about her mood improving. Denies SI but says "I'd rather not be here." Denies side effects from medications. No physical complaints. Review of Systems ROS Limitations: Poor Historian Except as stated in HPI: all other systems reviewed are Neg Mental Status Examination Appearance: Other (Fair) Consciousness: Alert Orientation: Person, Place (At least) Motor Activity: Other (No motoric abnormalities noted) Speech: Unremarkable Language: Adequate Fund of Knowledge: Adequate Attention and Concentration: Adequate Memory: Unremarkable (Grossly intact on clinical exam) Mood: Other (Remains depressed) Affect: Other (Perhaps a little more reactive today) Thought Process & Associations: Intact Thought Content: Appropriate Hallucination Type: None Delusion Type: None Suicidal Ideation: No Suicidal Plan: No Suicidal Intention: No Homicidal Ideation: No Homicidal Plan: No Homicidal Intention: No Insight: Fair Judgment: Impulsive Results Labs Test 10/01/17 06:27 Blood Urea Nitrogen 35 MG/DL Creatinine 1.34 MG/DL Random Glucose 186 MG/DL Calcium Level 9.6 MG/DL Sodium Level 142 MEQ/L Potassium Level 3.9 MEQ/L Chloride Level 108 MEQ/L Carbon Dioxide Level 24.6 MEQ/L Anion Gap 9 MEQ/L Estimat Glomerular Filtration Rate 39 ML/MIN Labs reviewed. GFR is stable. Vitals/IOs Vital Signs Date Time Temp Pulse Resp B/P (MAP) Pulse Ox O2 Delivery O2 Flow Rate FiO2 10/01/17 06:06 98.2 80 18 123/58 (09) 98 Assessment & Plan Problem List: (1) Dysthymic disorder ICD Codes: F34.1 - Dysthymic disorder Assessment & Plan Titrate Remeron to 30 mg at bedtime to target dysphoria. Hospitalist input noted and appreciated. Continue to monitor on the inpatient unit. Continue other medications and care as ordered. Justification for Cont. Inpt. Med changes. Risk for decompensation in less restrictive environment. Discharge Planning Pending psychiatric stabilization. Request HC Surrog/Guard Advoc?: No Huey Veras MD Oct 01, 2017 14:03
[2017-10-01] MEDS: hydrOXYzine HCL 50 MG TAB PO PRN (15:32)
[2017-10-01 18:25] VITALS: BP 131/62; PULSE 81; RESP 19; TEMP 98.6; O2SAT 97
[2017-10-01] MEDS: MIRTAZAPINE 15 MG TAB PO SCH (20:54)
[2017-10-01] MEDS: REMOVE OLD NICOTINE PATCH T-DERMAL SCH (21:00)
[2017-10-02 06:12] VITALS: PULSE 69; RESP 19; TEMP 98.1; O2SAT 94
[2017-10-02] MEDS: glipiZIDE 10 MG TAB PO SCH ×2 (06:32→16:10)
[2017-10-02] MEDS: INSULIN ASPART SUPPLEMENTAL SCALE SQ SCH ×4 (07:47→21:05)
[2017-10-02] MEDS: metFORMIN HCL 500 MG TAB PO SCH ×2 (08:44→17:57)
[2017-10-02] MEDS: ASPIRIN 81 MG CHEW TAB CHEW SCH (08:45)
[2017-10-02] MEDS: LOSARTAN 50 MG TAB PO SCH (08:47)
[2017-10-02] MEDS: hydrOXYzine HCL 50 MG TAB PO PRN (09:07)
--- NOTE | 2017-10-02 09:48 | HHI.PYPN ---
Subjective Chief Complaint: Depression, SI Remarks Patient seen and examined with nurse. Chart reviewed. Case discussed with nursing staff. Case discussed in treatment team. On my exam, patient remains dysphoric but denies SI. She remains fairly needy and pessimistic. She continues to insist that her depression will not improve. She feels that her son "doesn't give a damn" about her case, although counselor informs me that he is interested and involved in her case. No side effects from medications "they don't help and they don't hurt." No acute physical complaints. Review of Systems ROS Limitations: Poor Historian Except as stated in HPI: all other systems reviewed are Neg Mental Status Examination Appearance: Other (No abnormal motor movements noted) Consciousness: Alert Orientation: Person, Place (At least) Motor Activity: Other (No abnormal motor movements noted.) Speech: Unremarkable Language: Adequate Fund of Knowledge: Adequate Attention and Concentration: Adequate Memory: Unremarkable (Grossly intact on clinical exam) Mood: Other (Dysphoric) Affect: Blunt Thought Process & Associations: Intact Thought Content: Appropriate Hallucination Type: None Delusion Type: None Suicidal Ideation: No Suicidal Plan: No Suicidal Intention: No Homicidal Ideation: No Homicidal Plan: No Homicidal Intention: No Insight: Fair Judgment: Impulsive Results Labs Labs reviewed. Vitals/IOs Vital Signs Date Time Temp Pulse Resp B/P (MAP) Pulse Ox O2 Delivery O2 Flow Rate FiO2 10/02/17 06:12 98.1 69 19 94 Intake and Output 10/02/17 10/02/17 10/03/17 08:00 16:00 00:00 Intake Total 460 ml Balance 460 ml Assessment & Plan Problem List: (1) Dysthymic disorder ICD Codes: F34.1 - Dysthymic disorder Assessment & Plan Continue Remeron as ordered. To consider further titration of this agent. Hospitalist input appreciated. Continue to monitor on inpatient unit. Continue other medications and care as ordered. Justification for Cont. Inpt. Risk for decompensation in less restrictive environment Discharge Planning Pending psychiatric stabilization Request HC Surrog/Guard Advoc?: No Huey Veras MD October 02, 2017 09:48
--- NOTE | 2017-10-02 12:21 | HHI.PR ---
Subjective Remarks Follow-up visit for acute renal failure, hyperglycemia, and diabetes. Patient is seen and examined sitting in the day room eating. She continues to complain of not getting enough food. Denies any nausea, vomiting, fevers, chills, shortness of breath, cough, dizziness or lightheadedness. Reports that she has not yet had a bowel movement, denies any abdominal pain or discomfort. Is willing to try something to move her bowels today. Objective Vitals Vital Signs Date Time Temp Pulse Resp B/P (MAP) Pulse Ox O2 Delivery O2 Flow Rate FiO2 10/02/17 06:12 98.1 69 19 94 10/01/17 18:25 98.6 81 19 131/62 (85) 97 I/O 10/01/17 10/01/17 10/01/17 10/02/17 10/02/17 10/02/17 07:00 15:00 23:00 07:00 15:00 23:00 Intake Total 480 ml 480 ml 460 ml Balance 480 ml 480 ml 460 ml Intake Oral 480 ml 480 ml 460 ml # Voids 2 3 2 Result Diagram: 09/28/17 0757 10/01/17 0627 Imaging Last Impressions Renal Ultrasound 09/28/17 0000 Signed Impressions: Service Date/Time: Thursday, September 28, 2017 09:44 - CONCLUSION: 1. Bilateral cortical thinning and increased echogenicity suggesting medical renal disease. 2. Multiple bilateral renal cysts. Sam Ventura MD Objective Remarks GENERAL: Obese female in no acute distress. SKIN: Cool and dry. HEAD: Atraumatic. Normocephalic. EYES: Pupils equal round and reactive. No scleral icterus. No injection or drainage. ENT: Nose without bleeding, purulent. Airway patent. NECK: Trachea midline. CARDIOVASCULAR: Regular rate and rhythm without murmurs, gallops, or rubs. RESPIRATORY: Clear to auscultation. Breath sounds equal bilaterally. No wheezes , rales, or rhonchi. GASTROINTESTINAL: Abdomen soft, non-tender, nondistended. MUSCULOSKELETAL: Extremities without clubbing, cyanosis, or edema. No joint tenderness, effusion, or edema noted. NEUROLOGICAL: Awake and alert. Motor and sensory grossly within normal limits. Normal speech. A/P Problem List: (1) Dysthymic disorder ICD Code: F34.1 - Dysthymic disorder (2) Hyperlipidemia ICD Code: E78.5 - Hyperlipidemia, unspecified (3) Diabetes ICD Code: E11.9 - Type 2 diabetes mellitus without complications (4) Multiple sclerosis ICD Code: G35 - Multiple sclerosis (5) BECKY (acute kidney injury) ICD Code: N17.9 - Acute kidney failure, unspecified Status: Acute Assessment and Plan 71-year-old female with past medical history of HTN, DM, MS, HLD, and dementia admitted to inpatient psychiatry under Jasso act after making suicidal statements. [facility] consulted to assist with ongoing medical management. Dysthymic disorder -Treatment plan per psychiatry, greatly appreciated Hypertension, controlled -Blood pressure stable, continue Cozaar 50 mg daily, continue trending vitals and adjusting medications accordingly Diabetes mellitus type 2, well-controlled Hypoglycemic episode -Hemoglobin A1c 5.7 -Continue 1800 ADA diet, glipizide 20 mg twice daily, metformin 500mg BID ( GFR >30, max metformin 1,000mg daily, previously discussed with [facility] pharmacist) -Accu-Cheks ACHS with insulin sliding scale. No hypoglycemia. -Continue trending and adjusting medications accordingly - Consult dietary for recommendations, switch Gatorade to sugar-free Crystal light as Gatorade provides carb serving, dietary will continue to follow. BECKY on CKD III -Renal ultrasound reviewed, bilateral cortical thinning and increased echogenicity suggesting medical renal disease, multiple bilateral renal cysts. -UA with no proteinuria -Improvement in creatinine, and increase in BUN. Continue to encourage p.o. fluids, Crystal light with meals -BMP reviewed, renal function improved. Creatinine 1.27, BUN 30, GFR 41 Multiple sclerosis, stable -Continue patient's home Copaxone DVT prophylaxis-ambulation Discussed with patient. Problem Qualifiers (1) Hyperlipidemia: Qualified Codes: E78.5 - Hyperlipidemia, unspecified (2) Diabetes: Lauren Boles October 02, 2017 12:21
[2017-10-02] MEDS ORDERED: LACTULOSE SYRUP 20 GM/30 ML CUP PO ONE (12:30)
[2017-10-02 13:17] LABS: BICARBONATE 26.8 MEQ/L (21.0-32.0); CALCIUM 10.3 MG/DL (8.5-10.1); CREATININE 1.27 MG/DL (0.50-1.00)
[2017-10-02 17:44] VITALS: BP 140/69; PULSE 81; RESP 18; TEMP 98.1; O2SAT 96
[2017-10-02] MEDS: MIRTAZAPINE 15 MG TAB PO SCH (20:44)
[2017-10-02] MEDS: REMOVE OLD NICOTINE PATCH T-DERMAL SCH (21:00)
[2017-10-03 05:19] VITALS: BP 134/63; PULSE 93; RESP 17; TEMP 98.5; O2SAT 95
[2017-10-03] MEDS: glipiZIDE 10 MG TAB PO SCH (06:30)
[2017-10-03] MEDS: INSULIN ASPART SUPPLEMENTAL SCALE SQ SCH ×2 (08:00→11:32)
[2017-10-03 09:28] LABS: BICARBONATE 24.2 MEQ/L (21.0-32.0); CALCIUM 10.1 MG/DL (8.5-10.1); CREATININE 1.19 MG/DL (0.50-1.00)
[2017-10-03] MEDS: ASPIRIN 81 MG CHEW TAB CHEW SCH (09:44)
[2017-10-03] MEDS: LOSARTAN 50 MG TAB PO SCH (09:45)
[2017-10-03] MEDS: metFORMIN HCL 500 MG TAB PO SCH (09:45)
--- NOTE | 2017-10-03 12:45 | HHI.PR ---
Subjective Remarks Follow-up visit for ARF, DM, and HTN. Patient is laura and examined in the day room today. She repots that is is having pain on her left leg as well as shoulder and neck. She reports having a history of pain and has had similar pain in the past, however this is now worse. She reports it has been worse since her arrival here, although she has not mentioned this to me yesterday or the day before. She describes pain as constant and throbbing. Nothing makes the pain better or worse. She would like to know if I can do something for her pain. Spoke with nursing staff who report patient has been ambulating with use of walker without difficulties, no other issues or concerns. Objective Vitals Vital Signs Date Time Temp Pulse Resp B/P (MAP) Pulse Ox O2 Delivery O2 Flow Rate FiO2 10/03/17 05:19 98.5 93 17 134/63 (86) 95 10/02/17 17:44 98.1 81 18 140/69 (92) 96 I/O 10/02/17 10/02/17 10/02/17 10/03/17 10/03/17 10/03/17 07:00 15:00 23:00 07:00 15:00 23:00 Intake Total 1060 ml 360 ml 510 ml Balance 1060 ml 360 ml 510 ml Intake Oral 1060 ml 360 ml 510 ml # Voids 5 1 Result Diagram: 10/03/17 0725 Imaging Last Impressions Renal Ultrasound 09/28/17 0000 Signed Impressions: Service Date/Time: Thursday, September 28, 2017 09:44 - CONCLUSION: 1. Bilateral cortical thinning and increased echogenicity suggesting medical renal disease. 2. Multiple bilateral renal cysts. Sam Ventura MD Objective Remarks GENERAL: Obese female in no acute distress. SKIN: Cool and dry. HEAD: Atraumatic. Normocephalic. CARDIOVASCULAR: Regular rate and rhythm without murmurs, gallops, or rubs. RESPIRATORY: Clear to auscultation. Breath sounds equal bilaterally. No wheezes , rales, or rhonchi. GASTROINTESTINAL: Abdomen soft, non-tender, nondistended. MUSCULOSKELETAL: Extremities without clubbing, cyanosis, or edema. No joint tenderness, effusion, or edema noted. Ambulating with use of walker. Moves upper and lower extremities without difficulty. NEUROLOGICAL: Awake and alert. Motor and sensory grossly within normal limits. Normal speech. A/P Problem List: (1) Dysthymic disorder ICD Code: F34.1 - Dysthymic disorder (2) Hyperlipidemia ICD Code: E78.5 - Hyperlipidemia, unspecified (3) Diabetes ICD Code: E11.9 - Type 2 diabetes mellitus without complications (4) Multiple sclerosis ICD Code: G35 - Multiple sclerosis (5) BECKY (acute kidney injury) ICD Code: N17.9 - Acute kidney failure, unspecified Status: Acute Assessment and Plan 71-year-old female with past medical history of HTN, DM, MS, HLD, and dementia admitted to inpatient psychiatry under Jasso act after making suicidal statements. [facility] consulted to assist with ongoing medical management. Dysthymic disorder -Treatment plan per psychiatry, greatly appreciated Hypertension, controlled -Blood pressure stable, continue Cozaar 50 mg daily - BP well controlled Diabetes mellitus type 2, well-controlled Hypoglycemic episode -Hemoglobin A1c 5.7 -Continue 1800 ADA diet, glipizide 20 mg twice daily, metformin 500mg BID ( GFR >30, max metformin 1,000mg daily, previously discussed with [facility] pharmacist) -Accu-Cheks ACHS with insulin sliding scale. No hypoglycemia. -Continue trending and adjusting medications accordingly - Consult dietary for recommendations, sugar-free Crystal light as Gatorade provides carb serving, dietary will continue to follow. BECKY on CKD III -Renal ultrasound reviewed, bilateral cortical thinning and increased echogenicity suggesting medical renal disease, multiple bilateral renal cysts. -UA with no proteinuria -Improvement in creatinine, and increase in BUN. Continue to encourage p.o. fluids, Crystal light with meals -BMP reviewed, renal function improved. Creatinine 1.27, BUN 30, GFR 41--> Creatinine 1.19, BUN 31, GFR 45 Multiple sclerosis, stable Left leg pain, neck/ shoulder pain -Continue patient's home Copaxone - Hx sciatica as well, no recent injury. - Discussed with patient trial of gabapentin Constipation, resolved - Patient repots one BM yesterday after Lactulose. DVT prophylaxis-ambulation Discussed with patient and nurse Patient with plans to be DC today to detention. Her renal function has improved, BP and BS stable. She can try gabapentin for pain and follow up with her PCP or neurologist for ongoing treatment and adjustment of pain medications. Discussed with nurse. Problem Qualifiers (1) Hyperlipidemia: Qualified Codes: E78.5 - Hyperlipidemia, unspecified (2) Diabetes: Lauren Boles October 03, 2017 12:45
[2017-10-03] MEDS ORDERED: GABAPENTIN 100 MG CAP PO SCH (13:00)
[2017-10-03] MEDS ORDERED: MIRTA15 PO (13:29)
[2017-10-03] MEDS ORDERED: GABA100C4 PO (13:29)
--- NOTE | 2017-10-03 13:29 | HHI.DS ---
Psychiatry Discharge Summary Inpatient Psychiatric care?: Yes Advance Directive: No Reason Not Provided: Due to Patient Condition Mental Health AdvanceDirective: No Health Care Proxy: No Admission Admission Date Sep 27, 2017 at 00:02 Admission Diagnosis: (1) Dysthymic disorder ICD Code: F34.1 - Dysthymic disorder Brief History Ms. Kim is a 71-year-old female with a chart history of dysthymic disorder who presents under a Jasso act alleging that the patient stated that she had nothing to live for and did not want to live. Reviewing the electronic medical record, I note that the patient was admitted under Dr. Linton in June/July of this year. Patient apparently had some response to Remeron , and it appears that she was discharged on a dose of 30 mg. Patient seen and examined with nurse. Chart reviewed. Case discussed with nursing staff. On my examination today, the patient presents with some mixed cluster B/C personality traits. She affects a somewhat irreverent and playful interpersonal style that seems a little inappropriate to the circumstance. She seems to be enjoying the attention of the interview. She relates that "I don't want to live anymore. My life has really turned into nothing. My family doesn' t need me." She relates that she feels chronically depressed and she has " never really snapped out of" her depressed state in the several decades she has been experiencing this issue. She reports that recently she has been contemplating ending her life but is "too much of a chicken" to take any steps to do so. She does not verbalize any urge to hurt herself on the unit. She does report some sleep and appetite difficulties lately. No hypomanic or manic symptoms. No audiovisual hallucinations, delusions or other psychotic symptoms. Remainder of the psychiatric ROS is negative. No acute physical complaints. Past psychiatric history: Patient has a history of dysthymic disorder. She is not currently under the care of a psychiatrist. She reports that she became nonadherent with medications shortly after leaving the inpatient unit last time because she did not think that she needed them. Most recent psychiatric admission was here at [facility]. She does report an extensive history of previous psychiatric treatment and notes that she has been on several different classes of antidepressants in the past, all reportedly without benefit. She denies a history of suicide attempts. Family history: The patient denies a family history of mental illness or suicide. 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 Social history: The patient is from [place]. She lives alone. She has a son and 2 grandchildren, although their relationship is reportedly somewhat strained. She is . 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 She denies any history. Denies any access to guns or firearms. She is of the [employer] tracy. Tobacco Use In Past 30 Days: No Tobacco Past 30 Days Alcohol Use: Monthly or Less Hospital Course Patient was admitted to a locked, inpatient psychiatric unit. A general medical consultation was obtained. Appropriate precautions were in place throughout patient's hospital stay. Patient was seen and examined on the unit by psychiatry and also visited by counselor. Psychotropic medications were adjusted. There was no evidence of any suicidality or homicidality on the inpatient unit. The patient remained in good behavioral control and was medication compliant. Working with patient and son, counselor has arranged for placement at SNF. On the day of discharge: Patient seen and examined with counselor. Chart reviewed. Case discussed with nursing staff. No behavioral issues noted overnight. Case discussed in treatment team. On my examination today, the patient is enthusiastic about the prospect of going to SNF. She requests to be discharged there today. She denies any suicidal or homicidal ideation, intent or plan. Mood remains reportedly depressed, but affect is brighter versus admission, and the patient does not describe any associated symptoms of depression, nor can I elicit any hypomanic or manic symptoms. It is my suspicion that the patient is at her chronic baseline with respect to mood in the setting of her dysthymic disorder. The patient has no audiovisual hallucinations, nor can I elicit any delusional material. There is no evidence of any impairment in reality construction. The patient denies side effects from medications. She has no acute physical complaints. Weighing the relevant factors and based on the available evidence, I receivable manager that the patient does not meet criteria for involuntary psychiatric hospitalization. There is no evidence of imminent risk of harm to self or others, and the patient's level of function is adequate for planned level of outpatient care. The patient is requesting discharge to SNF today, and I have no basis to retain her over her objection. Patient will be discharged today with psychiatric follow-up as arranged by counselor. Patient is also to follow up with primary care. I did discuss the case with the mid-level provider from the hospitalist service, and she reports to me that the patient is medically cleared for discharge today. Patient to return to psychiatric emergency room for any concerning psychiatric symptoms as part of a general safety plan. Results Blood Pressure 134 / 63 Vital Signs Date Time Temp Pulse Resp B/P (MAP) Pulse Ox O2 Delivery O2 Flow Rate FiO2 10/03/17 05:19 98.5 93 17 134/63 (86) 95 Laboratory Tests Test 10/01/17 06:27 10/02/17 12:34 10/03/17 07:25 Blood Urea Nitrogen 35 MG/DL (7-18) 30 MG/DL (7-18) 31 MG/DL (7-18) Creatinine 1.34 MG/DL (0.50-1.00) 1.27 MG/DL (0.50-1.00) 1.19 MG/DL (0.50-1.00) Random Glucose 186 MG/DL (74-106) 156 MG/DL (74-106) 152 MG/DL (74-106) Chloride Level 108 MEQ/L (98-107) 108 MEQ/L (98-107) Estimat Glomerular Filtration Rate 39 ML/MIN (>89) 41 ML/MIN (>89) 45 ML/MIN (>89) Calcium Level 10.3 MG/DL (8.5-10.1) Laboratory Results Test 09/28/17 07:57 Cholesterol Level 123 MG/DL (120-200) HDL Cholesterol 46.0 MG/DL (40.0-60.0) Hemoglobin A1c 5.7 % (4.3-6.0) LDL Cholesterol 24 MG/DL (0-99) Triglycerides Level 265 MG/DL (42-150) Summary of Procedures None done Imaging Last Impressions Renal Ultrasound 09/28/17 0000 Signed Impressions: Service Date/Time: Thursday, September 28, 2017 09:44 - CONCLUSION: 1. Bilateral cortical thinning and increased echogenicity suggesting medical renal disease. 2. Multiple bilateral renal cysts. Sam Ventura MD Pending results at discharge: No Medications # of Antipsychotic meds at D/C: 0 Approp Antipsych med options 1 - Minimum of three failed multiple trials of monotherapy. 2 - Documented plan to taper to monotherapy due to previous use of multiple meds OR cross-taper in progress at D/C. 3 - Documentation of augmentation of Clozapine. 4 - Justification other than those listed in allowable values 1-3, document here : Discharge Discharge Date: October 03, 2017 Discharge Diagnosis: (1) Dysthymic disorder Diagnosis: Principal (stabilized) ICD Code: F34.1 - Dysthymic disorder Pt Condition on Discharge: Stable Discharge Disposition: Discharge to SNF Discharge Instructions Diet Instructions: Diabetic Diet Activities you can perform: Weight Bearing as Tomy Scheduled Appointment: As per counselors notes New Orders: BASIC METABOLIC PROF - 1 Week New Medications: Gabapentin (Gabapentin) 100 Mg Cap 100 MG PO TID for Health for 15 Days, CAP 1 Refill Mirtazapine (Mirtazapine) 15 Mg Tab 30 MG PO HS for Mental Health for 15 Days, TAB 1 Refill Continued Medications: Aspirin (Aspirin) 81 Mg Chew 81 MG CHEW DAILY for health, #30 TAB 0 Refills Glatiramer Inj (Copaxone Inj) 40 Mg/Ml Syr 40 MG SQ 3XWEEK for Multiple Sclerosis, #14 SYRINGE 0 Refills Use 3 times/week at least 48 hrs apart Glipizide (Glipizide) 10 Mg Tab 20 MG PO BIDAC for Blood Sugar Management, #120 TAB 0 Refills Take 30 minutes before a meal Metformin (Metformin) 500 Mg Tab 500 MG PO BIDPC for Blood Sugar Management, #60 TAB 0 Refills Olmesartan (Benicar) 20 Mg Tab 20 MG PO DAILY for Blood Pressure Management, #30 TAB 0 Refills Discontinued Medications: Bupropion HCl ER 24 HR (Bupropion HCl ER 24 HR) 300 Mg Tab 300 MG PO DAILY for Control Depression, TAB [address] (Cymbalta DR) 60 Mg Capdr 60 MG PO DAILY for health, #30 CAP 0 Refills Trazodone (Trazodone) 150 Mg Tablet 150 MG PO HS for Control Depression, #30 TAB 0 Refills Discharge Time > 30 minutes Mental Status Examination Appearance: Appropriate Consciousness: Alert Orientation: Person, Place (At least) Motor Activity: Other (No motoric abnormalities noted) Speech: Unremarkable Language: Adequate Fund of Knowledge: Adequate Attention and Concentration: Adequate Memory: Unremarkable (Remains grossly intact on clinical exam) Mood: Other (Mildly dysphoric) Affect: Other (More full and reactive versus admission) Thought Process & Associations: Intact, Logical, Linear Thought Content: Appropriate Hallucination Type: None Delusion Type: None Suicidal Ideation: No Suicidal Plan: No Suicidal Intention: No Homicidal Ideation: No Homicidal Plan: No Homicidal Intention: No Mental Status Exam Remarks Insight and judgment are fair Discharge/Advance Care Plan Health Problems: (1) Dysthymic disorder Goals to promote your health * To prevent worsening of your condition and complications * To maintain your health at the optimal level Directions to meet your goals Take your medications as prescribed Follow your dietary instruction Follow activity as directed Keep your appointments as scheduled Take your immunizations and boosters as scheduled If your symptoms worsen call your PCP, if no PCP go to Urgent Care Center or Emergency Room For 25/12 questions related to your inpatient stay or results of tests pending at discharge, please contact Dr. Huey Veras at Smoking is Dangerous to Your Health. Avoid second hand smoking Huey Veras MD October 03, 2017 13:29
[2017-10-03] MEDS: COPAXONE 40 MG/ML SQ SCH (13:37)
--- NOTE | 2017-10-03 15:08 | PD.TTN ---
Patient Problems 1. Discharge planning 2. Medication compliance 3. Knowledge deficit 4. Lack of coping skills Progress Toward Goals Provider Present: Dr. Claudia Veras Provider Input: 10/02/17 patient is very needy and demanding and still stating she is depressed and wanting more help and more care , medications titrated 09/28/17 patient presents with Dysthymic Disorder , discussed / offered ECT, there are some personality components, will remain for med adjustment/stabilization Psychiatric Counselors Present: Marya Beverly LCSW Psych Therapist Input: 10/02/17 pt is considering placement and is stating she feels she is not being talked to and becomes easily aggitated with counselor, [place] would take her for intermediate 09/28/17 new to this counselor Group Spec/RT/OT/ALEXANDER Present: Cliff Lara OT Group Spec/RT/OT/ALEXANDER Input: 10/02/17 pt has been attending some groups but limited engagement 09/28/17 OT eval pending, pt does not attend groups so far Marya Beverly LCSW October 03, 2017 15:08
== END 2017-10-03 15:15 | DRG 881 ==
LOC: NEPJ 17:02 → NEDA 09-27 00:02 → H260 09-27 00:18 → H250 09-27 14:00
PROVIDERS: ADMIT Psychiatry & Neurology Psychiatry; ATTEND Psychiatry & Neurology Psychiatry
DX: F34.1 Dysthymic disorder (principal); N17.9 Acute kidney failure, unspecified; F03.90 Unspecified dementia, unspecified severity, without behavioral disturbance, psychotic disturbance, mood disturbance, and anxiety; E11.22 Type 2 diabetes mellitus with diabetic chronic kidney disease; G35 Multiple sclerosis; E78.5 Hyperlipidemia, unspecified; E11.649 Type 2 diabetes mellitus with hypoglycemia without coma; I12.9 Hypertensive chronic kidney disease with stage 1 through stage 4 chronic kidney disease, or unspecified chronic kidney disease; N18.3 Chronic kidney disease, stage 3 (moderate); Z79.82 Long term (current) use of aspirin; Z79.899 Other long term (current) drug therapy
CPT/HCPCS: 76775; 80048; 80053; 80061; 80307; 81001; 82948; 83036; 84443; 85025; 99285; J1815